=== PATIENT | female | born 1950 | race Caucasian/White ===

== ENCOUNTER 2017-10-01 10:47 | Emergency (ER) | payer MEDICARE, MEDICAID ==
[2017-10-01 10:57] VITALS: BP 144/66
[2017-10-01] MEDS ORDERED: Sodium Chloride 0.9% 10 ML Syringe FLUSH PRN (11:25)
[2017-10-01] MEDS ORDERED: Sodium Chloride 0.9% 1,000 ML IV ONE (11:26)
[2017-10-01 12:18] LABS: CHLORIDE,CL 102 mmol/L (98-107); SODIUM,NA 141 mmol/L (136-145)
[2017-10-01] MEDS ORDERED: Take Home: Ondansetron 4 MG Tab.DIS, 2 Tab Pack PO ONE (12:48)
--- NOTE | 2017-10-04 11:04 | EDM.PDOC ---
ED HPI GENERAL MEDICAL PROBLEM - General Chief Complaint: General Stated Complaint: not feeling well Time Seen by Provider: 10/01/17 11:10 Source of Information: Reports: Patient History Limitations: Reports: No Limitations - History of Present Illness INITIAL COMMENTS - FREE TEXT/NARRATIVE: Pt. presents to ER with complaints of "not feeling well". Pt. states that she had been having some nausea and diarrhea the day prior to this ER visit. States that she feels cold, but attributes it to the weather. Denies any rigors. She has a history of COPD but has not been experiencing any increased dyspnea. Denies any chest pain. No abdominal pain. She states that she has not been experiencing any fever or chills. She is quite vague about her symptoms and complains primarily of weakness and fatigue. Onset: Today Associated Symptoms: Reports: Loss of Appetite, Malaise - Related Data Allergies Allergy/AdvReac Type Severity Reaction Status Date / Time No Known Allergies Allergy Verified 10/01/17 10:57 Home Meds: Home Meds Lisinopril 10 mg PO DAILY 10/01/14 [History] Albuterol Sulfate 2.5 mg IH Q4H PRN 10/01/17 [History] Albuterol [Ventolin HFA] 2 puff INH Q6H PRN 10/01/17 [History] Aspirin 81 mg PO DAILY 10/01/17 [History] Budesonide/Formoterol Fumarate [Symbicort 160-4.5 Mcg Inhaler] 2 puff IH BID 06/10 [History] Furosemide [Lasix] 20 mg PO DAILY 10/01/17 [History] LORazepam [LORazepam] 0.5 mg PO DAILY PRN 10/01/17 [History] Montelukast [Singulair] 10 mg PO BEDTIME 10/01/17 [History] Pantoprazole Sodium [Protonix] 40 mg PO DAILY 10/01/17 [History] atorvaSTATin [Lipitor] 40 mg PO BEDTIME 10/01/17 [History] metFORMIN [Glucophage] 500 mg PO BIDMEALS 10/01/17 [History] predniSONE [Prednisone] 20 mg PO DAILY 10/01/17 [History] Past Medical History HEENT History: Reports: Cataract Cardiovascular History: Reports: High Cholesterol, Hypertension Respiratory History: Reports: Bronchitis, Recurrent, COPD Gastrointestinal History: Reports: GERD Psychiatric History: Reports: Depression Endocrine/Metabolic History: Reports: Diabetes, Type II - Past Surgical History GI Surgical History: Reports: Cholecystectomy Female Surgical History: Reports: Section Social & Family History - Tobacco Use Smoking Status *Q: Current Every Day Smoker Years of Tobacco use: 46 Packs/Tins Daily: 1.5 - Alcohol Use Days Per Week of Alcohol Use: 0 - Recreational Drug Use Recreational Drug Use: No ED ROS GENERAL - Review of Systems Review Of Systems: See Below Constitutional: Reports: Chills, Malaise, Fatigue, Decreased Appetite. Denies: Weakness, Night Sweats HEENT: Reports: No Symptoms. Denies: Rhinitis, Sinus Problem, Throat Pain, Throat Swelling Respiratory: Reports: No Symptoms. Denies: Shortness of Breath, Wheezing Cardiovascular: Reports: No Symptoms Endocrine: Reports: No Symptoms GI/Abdominal: Reports: Anorexia, Diarrhea, Decreased Appetite, Nausea. Denies: Bloody Stool, Constipation, Distension, Vomiting : Reports: No Symptoms Musculoskeletal: Reports: No Symptoms Skin: Reports: No Symptoms Neurological: Reports: No Symptoms Psychiatric: Reports: No Symptoms ED EXAM, GENERAL - Physical Exam Exam: See Below General Appearance: Alert, WD/WN, No Apparent Distress Eye Exam: Bilateral Eye: EOMI, PERRL Ears: Normal External Exam, Normal Canal, Hearing Grossly Normal, Normal TMs Ear Exam: Bilateral Ear: Auricle Normal, Canal Normal, TM normal Nose: Normal Inspection, Normal Mucosa, No Blood Throat/Mouth: Normal Inspection, Normal Lips, Normal Teeth, Normal Gums, Normal Oropharynx, Normal Voice, No Airway Compromise Head: Atraumatic, Normocephalic Neck: Normal Inspection, Supple, Non-Tender, Full Range of Motion Respiratory/Chest: No Respiratory Distress, Lungs Clear, Normal Breath Sounds, No Accessory Muscle Use, Chest Non-Tender Cardiovascular: Normal Peripheral Pulses, Regular Rate, Rhythm, No Edema, No Gallop, No JVD, No Murmur, No Rub GI/Abdominal: Normal Bowel Sounds, Soft, Non-Tender, No Organomegaly, No Distention, No Abnormal Bruit, No Mass, Pelvis Stable. No: Distended, Rigid, Mass, Hepatomegaly, Splenomegaly (Female) Exam: Deferred Rectal (Female) Exam: Deferred Back Exam: Normal Inspection, Full Range of Motion, NT Extremities: Normal Inspection, Normal Range of Motion, Non-Tender, Normal Capillary Refill, No Pedal Edema Neurological: Alert, Oriented, CN II-XII Intact, Normal Cognition, Normal Gait, Normal Reflexes, No Motor/Sensory Deficits Psychiatric: Normal Affect, Normal Mood Skin Exam: Warm, Dry, Intact, Normal Color, No Rash Course - Vital Signs Last Recorded V/S: Last Vital Signs Temp 36.2 C 10/01/17 10:53 Pulse 117 H 10/01/17 10:53 Resp 14 10/01/17 10:53 BP 144/66 H 10/01/17 10:53 Pulse Ox 100 10/01/17 10:53 - Orders/Labs/Meds Labs: Laboratory Tests 10/01/17 10/01/17 10/01/17 Range/Units 11:10 11:38 11:38 WBC 9.7 (4.0-10.0) x10^3/uL RBC 5.12 (4.00-5.50) x10^6/uL Hgb 14.6 (12.0-16.0) g/dL Hct 44.8 (33.0-47.0) % MCV 87.5 (78.0-93.0) fL MCH 28.5 (26.0-32.0) pg MCHC 32.6 (32.0-36.0) g/dL RDW Coeff of Will 15.1 H (10.0-15.0) % Plt Count 316 (130-400) x10^3/uL Neut % (Auto) 71.6 (50.0-80.0) % Lymph % (Auto) 20.0 L (25.0-50.0) % [place] % (Auto) 7.6 (2.0-11.0) % Eos % (Auto) 0.5 (0.0-4.0) % Baso % (Auto) 0.3 (0.2-1.2) % PT 10.4 (9.8-11.8) SEC INR 1.0 L (2.0-3.5) Sodium (136-145) mmol/L Potassium (3.5-5.1) mmol/L Chloride (98-107) mmol/L Carbon Dioxide (21-32) mmol/L BUN (7-18) mg/dL Creatinine (0.55-1.02) mg/dL Est Cr Clr Drug Dosing mL/min Estimated GFR (MDRD) Glucose (74-106) mg/dL Lactic Acid (0.4-2.0) mmol/L Calcium (8.5-10.1) mg/dL Corrected Calcium (8.5-10.1) mg/dL Phosphorus (2.6-4.7) mg/dL Magnesium (1.8-2.4) mg/dL Total Bilirubin (0.2-1.0) mg/dL AST (15-37) U/L ALT (14-59) U/L Alkaline Phosphatase (46-116) U/L Troponin I (<=0.056) ng/mL C-Reactive Protein (<=0.9) mg/dL NT-Pro-B Natriuret Pep (<=125) pg/mL Total Protein (6.4-8.2) g/dL Albumin (3.4-5.0) g/dL Globulin Albumin/Globulin Ratio TSH, Ultra Sensitive (0.358-3.74) uIU/mL Urine Color Yellow (YELLOW) Urine Appearance Clear (CLEAR) Urine pH 6.0 (5.0-8.0) Ur Specific [place] 1.010 Urine Protein Negative (NEGATIVE) mg/dL Urine Glucose (UA) Negative (NEGATIVE) mg/dL Urine Ketones Negative (NEGATIVE) mg/dL Urine Occult Blood Trace-intact H (NEGATIVE) Urine Nitrite Negative (NEGATIVE) Urine Bilirubin Negative (NEGATIVE) Urine Urobilinogen 0.2 (0.2) EU/dL Ur Leukocyte Esterase Negative (NEGATIVE) Urine RBC 0-5 (NOT SEEN) /HPF Urine WBC 0-5 (NOT SEEN) /HPF Ur Squamous Epith Cells Few H (NEGATIVE) /HPF Urine Bacteria Not seen (NEGATIVE) /HPF Urine Mucus Not seen (NEGATIVE) /LPF 10/01/17 10/01/17 Range/Units 11:38 11:38 WBC (4.0-10.0) x10^3/uL RBC (4.00-5.50) x10^6/uL Hgb (12.0-16.0) g/dL Hct (33.0-47.0) % MCV (78.0-93.0) fL MCH (26.0-32.0) pg MCHC (32.0-36.0) g/dL RDW Coeff of Will (10.0-15.0) % Plt Count (130-400) x10^3/uL Neut % (Auto) (50.0-80.0) % Lymph % (Auto) (25.0-50.0) % [place] % (Auto) (2.0-11.0) % Eos % (Auto) (0.0-4.0) % Baso % (Auto) (0.2-1.2) % PT (9.8-11.8) SEC INR (2.0-3.5) Sodium 141 (136-145) mmol/L Potassium 3.5 (3.5-5.1) mmol/L Chloride 102 (98-107) mmol/L Carbon Dioxide 28 (21-32) mmol/L BUN 7 (7-18) mg/dL Creatinine 0.8 (0.55-1.02) mg/dL Est Cr Clr Drug Dosing 56.45 mL/min Estimated GFR (MDRD) > 60 Glucose 119 H (74-106) mg/dL Lactic Acid 1.5 (0.4-2.0) mmol/L Calcium 9.0 (8.5-10.1) mg/dL Corrected Calcium 9.08 (8.5-10.1) mg/dL Phosphorus 3.4 (2.6-4.7) mg/dL Magnesium 2.1 (1.8-2.4) mg/dL Total Bilirubin 0.6 (0.2-1.0) mg/dL AST 15 (15-37) U/L ALT 22 (14-59) U/L Alkaline Phosphatase 153 H (46-116) U/L Troponin I < 0.017 (<=0.056) ng/mL C-Reactive Protein 1.0 H (<=0.9) mg/dL NT-Pro-B Natriuret Pep 57 (<=125) pg/mL Total Protein 8.0 (6.4-8.2) g/dL Albumin 3.9 (3.4-5.0) g/dL Globulin 4.1 Albumin/Globulin Ratio 0.95 TSH, Ultra Sensitive 1.301 (0.358-3.74) uIU/mL Urine Color (YELLOW) Urine Appearance (CLEAR) Urine pH (5.0-8.0) Ur Specific [place] Urine Protein (NEGATIVE) mg/dL Urine Glucose (UA) (NEGATIVE) mg/dL Urine Ketones (NEGATIVE) mg/dL Urine Occult Blood (NEGATIVE) Urine Nitrite (NEGATIVE) Urine Bilirubin (NEGATIVE) Urine Urobilinogen (0.2) EU/dL Ur Leukocyte Esterase (NEGATIVE) Urine RBC (NOT SEEN) /HPF Urine WBC (NOT SEEN) /HPF Ur Squamous Epith Cells (NEGATIVE) /HPF Urine Bacteria (NEGATIVE) /HPF Urine Mucus (NEGATIVE) /LPF Meds: Medications Discontinued Medications Generic Name Dose Route Start Last Admin Trade Name Freq PRN Reason Stop Dose Admin Sodium Chloride 1,000 mls @ 1,000 mls/hr 10/01/17 11:26 10/01/17 11:29 Normal Saline IV 10/01/17 12:25 1,000 mls/hr .BOLUS ONE Administration Ondansetron HCl 1 packet 10/01/17 12:48 10/01/17 13:00 Take Home: Ondansetron Odt 4 Mg, 2 Tab Pack PO 10/01/17 12:49 1 packet ONETIME ONE Administration Sodium Chloride 10 ml 10/01/17 11:25 Saline Flush FLUSH ASDIRECTED PRN Keep Vein Open Departure - Departure Time of Disposition: 13:06 Disposition: Home, Self-Care 01 Clinical Impression: Gastroenteritis, Dehydration - Discharge Information Instructions: Ondansetron oral dissolving tablet, Viral Gastroenteritis, Adult , [id number], Food Choices to Help Relieve Diarrhea, Adult Referrals: Leona Walden DO [Primary Care Provider] - Forms: ED Department Discharge Additional Instructions: Home to rest. Liquid diet today (water, gatorade, and powerade) Porter diet tomorrow (bananas, rice, apples, toast, etc.) starting tomorrow. Zofran 4mg every 8 hours. Follow-up in clinic in 7-10 days.
== END 2017-10-01 13:06 | disposition home or self-care (01) ==
LOC: VM.ED 10:47
DX: K52.9 Noninfective gastroenteritis and colitis, unspecified (principal); E11.9 Type 2 diabetes mellitus without complications; I10 Essential (primary) hypertension; E78.00 Pure hypercholesterolemia, unspecified; K21.9 Gastro-esophageal reflux disease without esophagitis; F17.210 Nicotine dependence, cigarettes, uncomplicated; J44.9 Chronic obstructive pulmonary disease, unspecified; F32.9 Major depressive disorder, single episode, unspecified; Z79.84 Long term (current) use of oral hypoglycemic drugs; Z79.82 Long term (current) use of aspirin; Z79.899 Other long term (current) drug therapy
CPT/HCPCS: 36415; 71046; 80053; 81001; 83605; 83735; 83880; 84100; 84443; 84484; 85025; 85610; 86140; 93005; 96360; 96361; 99284-GF; 99285; A9270-GY; J7030

== ENCOUNTER 2018-08-14 17:55 | Observation (INO) | payer MEDICARE, MEDICAID ==
[2018-08-14] MEDS ORDERED: Sodium Chloride 0.9% 10 ML Syringe FLUSH PRN (18:05)
--- NOTE | 2018-08-14 18:12 | EDM.PDOC ---
ED HPI GENERAL MEDICAL PROBLEM - General Chief Complaint: Neurological Problem Stated Complaint: Dizziness; Near Syncope Time Seen by Provider: 08/14/18 17:56 Source of Information: Reports: Patient, Family, Old Records, RN, RN Notes Reviewed History Limitations: Reports: No Limitations - History of Present Illness INITIAL COMMENTS - FREE TEXT/NARRATIVE: Patient presents emergency room at [facility] complaining of dizziness, near syncope, shortness of breath, and heart palpitations. The patient states that the symptoms began around 4 PM this afternoon. The patient denies any nausea or vomiting. The patient states she feels like she is going to pass out. The patient has not had any head injuries or LOC. The patient denies any chest pain. The patient has a long-standing history of COPD and shortness of breath. The patient does take lorazepam 1 mg twice daily. She has been taking her medications as directed. Onset: Today Onset Date: 08/14/18 Onset Time: 16:00 - Related Data Allergies Allergy/AdvReac Type Severity Reaction Status Date / Time metformin Allergy Diarrhea Verified 08/14/18 19:49 Home Meds: Home Meds Lisinopril 10 mg PO DAILY 10/01/14 [History] Albuterol Sulfate 2.5 mg IH Q4H PRN 10/01/17 [History] Albuterol [Ventolin HFA] 2 puff INH Q6H PRN 10/01/17 [History] Aspirin 81 mg PO DAILY 10/01/17 [History] Budesonide/Formoterol Fumarate [Symbicort 160-4.5 Mcg Inhaler] 2 puff IH BID 06/10 [History] Furosemide [Lasix] 20 mg PO DAILY 10/01/17 [History] LORazepam 0.5 mg PO DAILY PRN 10/01/17 [History] Montelukast [Singulair] 10 mg PO BEDTIME 10/01/17 [History] Pantoprazole Sodium [Protonix] 40 mg PO DAILY 10/01/17 [History] atorvaSTATin [Lipitor] 40 mg PO BEDTIME 10/01/17 [History] metFORMIN [Glucophage] 500 mg PO BIDMEALS 10/01/17 [History] predniSONE [Prednisone] 20 mg PO DAILY 10/01/17 [History] Past Medical History HEENT History: Reports: Cataract Cardiovascular History: Reports: High Cholesterol, Hypertension Respiratory History: Reports: Bronchitis, Recurrent, COPD Gastrointestinal History: Reports: GERD Psychiatric History: Reports: Depression Endocrine/Metabolic History: Reports: Diabetes, Type II - Past Surgical History GI Surgical History: Reports: Cholecystectomy Female Surgical History: Reports: Section ED ROS GENERAL - Review of Systems Review Of Systems: See Below Constitutional: Denies: Fever, Chills, Weakness HEENT: Denies: Vertigo, Vision Change Respiratory: Reports: Shortness of Breath. Denies: Cough Cardiovascular: Reports: Palpitations. Denies: Chest Pain GI/Abdominal: Denies: Abdominal Pain, Nausea, Vomiting Skin: Reports: No Symptoms Neurological: Reports: Dizziness. Denies: Headache, Numbness, Paresthesia, Tingling ED EXAM, DIZZINESS - Physical Exam Exam: See Below Exam Limited By: No Limitations General Appearance: Alert, No Apparent Distress, Anxious, Cachetic Eye Exam: Bilateral Eye: Normal Inspection, PERRL Head Exam: Atraumatic, Normocephalic Respiratory/Chest: No Respiratory Distress, Lungs Clear, Decreased Breath Sounds Cardiovascular: Normal Peripheral Pulses, Extra Beats GI/Abdominal: Normal Bowel Sounds, Soft, Non-Tender Neurological: Alert, Normal Gait, Oriented x 3 Skin Exam: Warm, Dry, Intact, Normal Color Course - Vital Signs Last Recorded V/S: Last Vital Signs Temp 36.1 C 08/14/18 18:15 Pulse 103 H 08/14/18 18:15 Resp 20 08/14/18 18:15 BP 136/56 L 08/14/18 18:15 Pulse Ox 100 08/14/18 18:15 - Orders/Labs/Meds Orders: Active Orders 24 hr Category Date Time Status EKG 12 Lead [EKG Documentation Completion] [RC] STAT Care 08/14/18 18:05 Active Chest 2V [CR] Stat Exams 08/14/18 18:04 Taken Sodium Chloride 0.9% [Saline Flush] Med 08/14/18 18:05 Active 10 ml FLUSH ASDIRECTED PRN Peripheral IV Insertion Adult [OM.PC] Routine Oth 08/14/18 18:05 Ordered Medication Orders Sodium Chloride (Saline Flush) 10 ml FLUSH ASDIRECTED PRN PRN Reason: Keep Vein Open Labs: Laboratory Tests 08/14/18 08/14/18 08/14/18 Range/Units 18:20 18:20 18:20 WBC 8.8 (4.0-10.0) x10^3/uL RBC 5.03 (4.00-5.50) x10^6/uL Hgb 14.7 (12.0-16.0) g/dL Hct 43.9 (33.0-47.0) % MCV 87.3 (78.0-93.0) fL MCH 29.2 (26.0-32.0) pg MCHC 33.5 (32.0-36.0) g/dL RDW Coeff of Will 14.9 (10.0-15.0) % Plt Count 321 (130-400) x10^3/uL Neut % (Auto) 54.6 (50.0-80.0) % Lymph % (Auto) 35.7 (25.0-50.0) % [place] % (Auto) 8.1 (2.0-11.0) % Eos % (Auto) 1.4 (0.0-4.0) % Baso % (Auto) 0.2 (0.2-1.2) % Sodium 142 (136-145) mmol/L Potassium 2.8 L* (3.5-5.1) mmol/L Chloride 102 (98-107) mmol/L Carbon Dioxide 29 (21-32) mmol/L Anion Gap 13.8 (10-20) mmol/L BUN 11 (7-18) mg/dL Creatinine 0.7 (0.55-1.02) mg/dL Est Cr Clr Drug Dosing TNP Estimated GFR (MDRD) > 60 Glucose 116 H (74-106) mg/dL Calcium 9.4 (8.5-10.1) mg/dL Corrected Calcium 9.48 (8.5-10.1) mg/dL Total Bilirubin 0.4 (0.2-1.0) mg/dL AST 15 (15-37) U/L ALT 23 (14-59) U/L Alkaline Phosphatase 118 H (46-116) U/L Creatine Kinase 64 (26-192) U/L Troponin I < 0.017 (<=0.056) ng/mL Total Protein 8.1 (6.4-8.2) g/dL Albumin 3.9 (3.4-5.0) g/dL Globulin 4.2 Albumin/Globulin Ratio 0.93 Urine Color (YELLOW) Urine Appearance (CLEAR) Urine pH (5.0-8.0) Ur Specific [place] Urine Protein (NEGATIVE) mg/dL Urine Glucose (UA) (NEGATIVE) mg/dL Urine Ketones (NEGATIVE) mg/dL Urine Occult Blood (NEGATIVE) Urine Nitrite (NEGATIVE) Urine Bilirubin (NEGATIVE) Urine Urobilinogen (0.2) EU/dL Ur Leukocyte Esterase (NEGATIVE) Urine RBC (NOT SEEN) /HPF Urine WBC (NOT SEEN) /HPF Ur Squamous Epith Cells (NEGATIVE) /HPF Urine Bacteria (NEGATIVE) /HPF Urine Mucus (NEGATIVE) /LPF Urine Opiates Screen (NEGATIVE) Ur Buprenorphine Scrn (NEGATIVE) Ur Oxycodone Screen (NEGATIVE) Urine Methadone Screen (NEGATIVE) Ur Barbiturates Screen (NEGATIVE) Ur Tricyclics Screen (NEGATIVE) Ur Amphetamine Screen (NEGATIVE) U Methamphetamines Scrn (NEGATIVE) Urine MDMA Screen (NEGATIVE) U Benzodiazepines Scrn (NEGATIVE) U Cocaine Metab Screen (NEGATIVE) U Marijuana (THC) Screen (NEGATIVE) Ethyl Alcohol < 3 (0-3) mg/dL 08/14/18 08/14/18 Range/Units 19:15 19:20 WBC (4.0-10.0) x10^3/uL RBC (4.00-5.50) x10^6/uL Hgb (12.0-16.0) g/dL Hct (33.0-47.0) % MCV (78.0-93.0) fL MCH (26.0-32.0) pg MCHC (32.0-36.0) g/dL RDW Coeff of Will (10.0-15.0) % Plt Count (130-400) x10^3/uL Neut % (Auto) (50.0-80.0) % Lymph % (Auto) (25.0-50.0) % [place] % (Auto) (2.0-11.0) % Eos % (Auto) (0.0-4.0) % Baso % (Auto) (0.2-1.2) % Sodium (136-145) mmol/L Potassium (3.5-5.1) mmol/L Chloride (98-107) mmol/L Carbon Dioxide (21-32) mmol/L Anion Gap (10-20) mmol/L BUN (7-18) mg/dL Creatinine (0.55-1.02) mg/dL Est Cr Clr Drug Dosing Estimated GFR (MDRD) Glucose (74-106) mg/dL Calcium (8.5-10.1) mg/dL Corrected Calcium (8.5-10.1) mg/dL Total Bilirubin (0.2-1.0) mg/dL AST (15-37) U/L ALT (14-59) U/L Alkaline Phosphatase (46-116) U/L Creatine Kinase (26-192) U/L Troponin I (<=0.056) ng/mL Total Protein (6.4-8.2) g/dL Albumin (3.4-5.0) g/dL Globulin Albumin/Globulin Ratio Urine Color Yellow (YELLOW) Urine Appearance Clear (CLEAR) Urine pH 7.0 (5.0-8.0) Ur Specific [place] 1.015 Urine Protein Negative (NEGATIVE) mg/dL Urine Glucose (UA) Negative (NEGATIVE) mg/dL Urine Ketones Negative (NEGATIVE) mg/dL Urine Occult Blood Small H (NEGATIVE) Urine Nitrite Negative (NEGATIVE) Urine Bilirubin Negative (NEGATIVE) Urine Urobilinogen 0.2 (0.2) EU/dL Ur Leukocyte Esterase Negative (NEGATIVE) Urine RBC 0-5 (NOT SEEN) /HPF Urine WBC 0-5 (NOT SEEN) /HPF Ur Squamous Epith Cells Few H (NEGATIVE) /HPF Urine Bacteria Few H (NEGATIVE) /HPF Urine Mucus Few H (NEGATIVE) /LPF Urine Opiates Screen Negative (NEGATIVE) Ur Buprenorphine Scrn Negative (NEGATIVE) Ur Oxycodone Screen Negative (NEGATIVE) Urine Methadone Screen Negative (NEGATIVE) Ur Barbiturates Screen Negative (NEGATIVE) Ur Tricyclics Screen Negative (NEGATIVE) Ur Amphetamine Screen Negative (NEGATIVE) U Methamphetamines Scrn Negative (NEGATIVE) Urine MDMA Screen Negative (NEGATIVE) U Benzodiazepines Scrn Negative (NEGATIVE) U Cocaine Metab Screen Negative (NEGATIVE) U Marijuana (THC) Screen Negative (NEGATIVE) Ethyl Alcohol (0-3) mg/dL Meds: Medications Generic Name Dose Route Start Last Admin Trade Name Freq PRN Reason Stop Dose Admin Sodium Chloride 10 ml 08/14/18 18:05 Saline Flush FLUSH ASDIRECTED PRN Keep Vein Open Departure - Departure Time of Disposition: 19:55 Disposition: Refer to Observation Condition: Good Clinical Impression: Acute hypokalemia - Discharge Information *PRESCRIPTION DRUG MONITORING PROGRAM REVIEWED*: Not Applicable *COPY OF PRESCRIPTION DRUG MONITORING REPORT IN PATIENT ROSY: Not Applicable - Problem List Review Problem List Initiated/Reviewed/Updated: Yes - My Orders Last 24 Hours: My Active Orders 08/14/18 18:04 Chest 2V [CR] Stat 08/14/18 18:05 EKG 12 Lead [EKG Documentation Completion] [RC] STAT Sodium Chloride 0.9% [Saline Flush] 10 ml FLUSH ASDIRECTED PRN Peripheral IV Insertion Adult [OM.PC] Routine - Assessment/Plan Admission H&P: Please use this note as an admission H&P Last 24 Hours: My Active Orders 08/14/18 18:04 Chest 2V [CR] Stat 08/14/18 18:05 EKG 12 Lead [EKG Documentation Completion] [RC] STAT Sodium Chloride 0.9% [Saline Flush] 10 ml FLUSH ASDIRECTED PRN Peripheral IV Insertion Adult [OM.PC] Routine Assessment:: Hypokalemia Plan: Patient will be admitted obs due to symptomatic hypokalemia. Patient will get IV KCL and levels rechecked. If normal, patient will be discharge home. Patient agrees with this admission and wishes to proceed.
[2018-08-14 18:57] LABS: CHLORIDE,CL 102 mmol/L (98-107); SODIUM,NA 142 mmol/L (136-145)
[2018-08-14 18:58] LABS: ANION GAP 13.8 mmol/L (10-20)
[2018-08-14] MEDS ORDERED: Sodium Chloride 0.9% 500 ML IV ONE (20:24)
[2018-08-14] MEDS ORDERED: Potassium Chloride 10 MEQ Tab.ER PO ONE (20:26)
[2018-08-14] MEDS ORDERED: Potassium Chloride Riders 20 MEQ in Premix Bag 1 BAG IV ONE ×2 (20:30→22:30)
[2018-08-14] MEDS ORDERED: Albuterol 0.083% 2.5 MG/3 ML Neb Soln INH PRN (21:55)
[2018-08-14] MEDS ORDERED: Albuterol 8 GM Inhaler INH PRN (21:55)
[2018-08-14] MEDS: busPIRone 5 MG Tab PO SCH (22:20)
[2018-08-14] MEDS ORDERED: Ondansetron 4 MG Tab.DIS PO PRN (22:30)
[2018-08-14] MEDS ORDERED: Montelukast 10 MG Tab PO ONE (22:30)
[2018-08-14] MEDS ORDERED: LORazepam 1 MG Tab PO PRN (22:30)
[2018-08-14] MEDS ORDERED: atorvaSTATin 40 MG Tab PO ONE (22:30)
[2018-08-15] MEDS ORDERED: Albuterol/Ipratropium 3.0-0.5 MG/3 ML Neb Soln INH SCH (01:00)
[2018-08-15 05:13] VITALS: BP 135/71
[2018-08-15] MEDS ORDERED: Pantoprazole 40 MG Tab.CR PO SCH (07:00)
[2018-08-15 07:19] LABS: CHLORIDE,CL 108 mmol/L (98-107); SODIUM,NA 144 mmol/L (136-145)
[2018-08-15 07:20] LABS: ANION GAP 11.7 mmol/L (10-20)
--- NOTE | 2018-08-15 07:42 | PCM.DCSUM1 ---
Discharge Summary - Hospital Course HPI Initial Comments: Patient admitted to observation last even for hypokalemia. Patient had presented to the ED yesterday for feeling shaky, dizziness, and just not feeling well. He potassium was 2.8, so patient was admitted for IV replacement. Diagnosis: Stroke: No Modified [place] Scale: No Symptoms at All Modified [place] Scale Score: 0 - Discharge Data Discharge Date: 08/15/18 Discharge Disposition: Home, Self-Care 01 Condition: Good - Discharge Diagnosis/Problem(s) (1) Acute hypokalemia SNOMED Code(s): 94891626 ICD Code: E87.6 - HYPOKALEMIA Status: Resolved Current Visit: Yes Onset Date: ~08/14/18 - Patient Summary/Data Operative Procedure(s) Performed: None Consults: None Labs Pending at D/C: None Hospital Course: Patient remained hemodynamically stable and afebrile. No issues with pain. No chest pain or SOB. No heart palpitations. No issues with BM's or urination. - Patient Instructions Diet: Heart Healthy Diet, Low Sodium Activity: No Strenuous Activities, Rest and Relax Today Driving: Do Not Drive Showering/Bathing: May Shower - Discharge Plan *PRESCRIPTION DRUG MONITORING PROGRAM REVIEWED*: Not Applicable *COPY OF PRESCRIPTION DRUG MONITORING REPORT IN PATIENT ROSY: Not Applicable Prescriptions/Med Rec: Calcium Carbonate/Vitamin D3 [Calcium 600 + Vit D 400 Tablet] 1 each PO DAILY # 30 tablet Potassium Chloride 20 meq PO DAILY #30 tablet.er Home Medications: Home Meds Lisinopril 10 mg PO DAILY 10/01/14 [History] Albuterol [Ventolin HFA] 2 puff INH Q6H PRN 10/01/17 [History] Aspirin 81 mg PO DAILY 10/01/17 [History] Furosemide [Lasix] 20 mg PO DAILY 10/01/17 [History] LORazepam 1 mg PO BID PRN 10/01/17 [History] Montelukast [Singulair] 10 mg PO BEDTIME 10/01/17 [History] Pantoprazole Sodium [Protonix] 40 mg PO DAILY 10/01/17 [History] atorvaSTATin [Lipitor] 40 mg PO BEDTIME 10/01/17 [History] Ondansetron [Zofran ODT] 4 mg PO Q8H PRN 08/14/18 [History] Umeclidinium Brm/Vilanterol Tr [Anoro Ellipta 62.5-25 MCG] 1 each IH DAILY 08/14 [History] amLODIPine Besylate [Norvasc] 10 mg PO DAILY 08/14/18 [History] busPIRone [Buspar] 5 mg PO BID 08/14/18 [History] Calcium Carbonate/Vitamin D3 [Calcium 600 + Vit D 400 Tablet] 1 each PO DAILY # 30 tablet 08/15/18 [Rx] Potassium Chloride 20 meq PO DAILY #30 tablet.er 08/15/18 [Rx] Oxygen Therapy Mode: Room Air Referrals: Leona Walden DO [Primary Care Provider] - - Discharge Summary/Plan Comment DC Time >30 min.: No Discharge Summary/Plan Comment: Patient will be discharge home today. Start KCL 20meg daily and also start Calcium with D daily. No changes with any other medications. Patient will need a follow up with PCP next week. Will also need labs prior to PCP appt. - General Info Date of Service: 08/15/18 Admission Dx/Problem (Free Text: Hypokalemia Subjective Update: Patient offers no specific complaints this morning. She feel much better. No chest pain or SOB. No palpitations. No focal neurological complaints. Functional Status: Reports: Pain Controlled, Tolerating Diet, Ambulating, Urinating Numeric/FACES Score: 0 - Review of Systems General: Denies: Fever, Chills Pulmonary: Denies: Shortness of Breath, Cough Cardiovascular: Denies: Chest Pain, Palpitations, Lightheadedness Gastrointestinal: Denies: Abdominal Pain, Nausea, Vomiting Skin: Reports: No Symptoms Neurological: Denies: Dizziness, Headache - Patient Data Vitals - Most Recent: Last Vital Signs Temp 36.6 C 08/15/18 05:12 Pulse 88 08/15/18 05:12 Resp 18 08/15/18 05:12 BP 135/71 08/15/18 05:12 Pulse Ox 93 L 08/15/18 05:12 Weight - Most Recent: 76.204 kg I&O - Last 24 hours: Intake & Output 08/14/18 08/15/18 08/15/18 22:59 06:59 14:59 Intake Total 383 Output Total 2100 Balance -1717 Lab Results - Last 24 hrs: Laboratory Results - last 24 hr 08/14/18 08/14/18 08/14/18 Range/Units 18:20 18:20 18:20 WBC 8.8 (4.0-10.0) x10^3/uL RBC 5.03 (4.00-5.50) x10^6/uL Hgb 14.7 (12.0-16.0) g/dL Hct 43.9 (33.0-47.0) % MCV 87.3 (78.0-93.0) fL MCH 29.2 (26.0-32.0) pg MCHC 33.5 (32.0-36.0) g/dL RDW Coeff of Will 14.9 (10.0-15.0) % Plt Count 321 (130-400) x10^3/uL Neut % (Auto) 54.6 (50.0-80.0) % Lymph % (Auto) 35.7 (25.0-50.0) % [place] % (Auto) 8.1 (2.0-11.0) % Eos % (Auto) 1.4 (0.0-4.0) % Baso % (Auto) 0.2 (0.2-1.2) % Sodium 142 (136-145) mmol/L Potassium 2.8 L* (3.5-5.1) mmol/L Chloride 102 (98-107) mmol/L Carbon Dioxide 29 (21-32) mmol/L Anion Gap 13.8 (10-20) mmol/L BUN 11 (7-18) mg/dL Creatinine 0.7 (0.55-1.02) mg/dL Est Cr Clr Drug Dosing TNP Estimated GFR (MDRD) > 60 Glucose 116 H (74-106) mg/dL Calcium 9.4 (8.5-10.1) mg/dL Corrected Calcium 9.48 (8.5-10.1) mg/dL Magnesium (1.8-2.4) mg/dL Total Bilirubin 0.4 (0.2-1.0) mg/dL AST 15 (15-37) U/L ALT 23 (14-59) U/L Alkaline Phosphatase 118 H (46-116) U/L Creatine Kinase 64 (26-192) U/L Troponin I < 0.017 (<=0.056) ng/mL Total Protein 8.1 (6.4-8.2) g/dL Albumin 3.9 (3.4-5.0) g/dL Globulin 4.2 Albumin/Globulin Ratio 0.93 Urine Color (YELLOW) Urine Appearance (CLEAR) Urine pH (5.0-8.0) Ur Specific [place] Urine Protein (NEGATIVE) mg/dL Urine Glucose (UA) (NEGATIVE) mg/dL Urine Ketones (NEGATIVE) mg/dL Urine Occult Blood (NEGATIVE) Urine Nitrite (NEGATIVE) Urine Bilirubin (NEGATIVE) Urine Urobilinogen (0.2) EU/dL Ur Leukocyte Esterase (NEGATIVE) Urine RBC (NOT SEEN) /HPF Urine WBC (NOT SEEN) /HPF Ur Squamous Epith Cells (NEGATIVE) /HPF Urine Bacteria (NEGATIVE) /HPF Urine Mucus (NEGATIVE) /LPF Urine Opiates Screen (NEGATIVE) Ur Buprenorphine Scrn (NEGATIVE) Ur Oxycodone Screen (NEGATIVE) Urine Methadone Screen (NEGATIVE) Ur Barbiturates Screen (NEGATIVE) Ur Tricyclics Screen (NEGATIVE) Ur Amphetamine Screen (NEGATIVE) U Methamphetamines Scrn (NEGATIVE) Urine MDMA Screen (NEGATIVE) U Benzodiazepines Scrn (NEGATIVE) U Cocaine Metab Screen (NEGATIVE) U Marijuana (THC) Screen (NEGATIVE) Ethyl Alcohol < 3 (0-3) mg/dL 08/14/18 08/14/18 08/15/18 Range/Units 19:15 19:20 06:30 WBC (4.0-10.0) x10^3/uL RBC (4.00-5.50) x10^6/uL Hgb (12.0-16.0) g/dL Hct (33.0-47.0) % MCV (78.0-93.0) fL MCH (26.0-32.0) pg MCHC (32.0-36.0) g/dL RDW Coeff of Will (10.0-15.0) % Plt Count (130-400) x10^3/uL Neut % (Auto) (50.0-80.0) % Lymph % (Auto) (25.0-50.0) % [place] % (Auto) (2.0-11.0) % Eos % (Auto) (0.0-4.0) % Baso % (Auto) (0.2-1.2) % Sodium 144 (136-145) mmol/L Potassium 3.7 (3.5-5.1) mmol/L Chloride 108 H (98-107) mmol/L Carbon Dioxide 28 (21-32) mmol/L Anion Gap 11.7 (10-20) mmol/L BUN 9 (7-18) mg/dL Creatinine 0.6 (0.55-1.02) mg/dL Est Cr Clr Drug Dosing 70.98 Estimated GFR (MDRD) > 60 Glucose 105 (74-106) mg/dL Calcium 9.2 (8.5-10.1) mg/dL Corrected Calcium (8.5-10.1) mg/dL Magnesium 2.1 (1.8-2.4) mg/dL Total Bilirubin (0.2-1.0) mg/dL AST (15-37) U/L ALT (14-59) U/L Alkaline Phosphatase (46-116) U/L Creatine Kinase (26-192) U/L Troponin I (<=0.056) ng/mL Total Protein (6.4-8.2) g/dL Albumin (3.4-5.0) g/dL Globulin Albumin/Globulin Ratio Urine Color Yellow (YELLOW) Urine Appearance Clear (CLEAR) Urine pH 7.0 (5.0-8.0) Ur Specific [place] 1.015 Urine Protein Negative (NEGATIVE) mg/dL Urine Glucose (UA) Negative (NEGATIVE) mg/dL Urine Ketones Negative (NEGATIVE) mg/dL Urine Occult Blood Small H (NEGATIVE) Urine Nitrite Negative (NEGATIVE) Urine Bilirubin Negative (NEGATIVE) Urine Urobilinogen 0.2 (0.2) EU/dL Ur Leukocyte Esterase Negative (NEGATIVE) Urine RBC 0-5 (NOT SEEN) /HPF Urine WBC 0-5 (NOT SEEN) /HPF Ur Squamous Epith Cells Few H (NEGATIVE) /HPF Urine Bacteria Few H (NEGATIVE) /HPF Urine Mucus Few H (NEGATIVE) /LPF Urine Opiates Screen Negative (NEGATIVE) Ur Buprenorphine Scrn Negative (NEGATIVE) Ur Oxycodone Screen Negative (NEGATIVE) Urine Methadone Screen Negative (NEGATIVE) Ur Barbiturates Screen Negative (NEGATIVE) Ur Tricyclics Screen Negative (NEGATIVE) Ur Amphetamine Screen Negative (NEGATIVE) U Methamphetamines Scrn Negative (NEGATIVE) Urine MDMA Screen Negative (NEGATIVE) U Benzodiazepines Scrn Negative (NEGATIVE) U Cocaine Metab Screen Negative (NEGATIVE) U Marijuana (THC) Screen Negative (NEGATIVE) Ethyl Alcohol (0-3) mg/dL Med Orders - Current: Current Medications Albuterol (Ventolin Hfa) 2 gm INH Q6H PRN PRN Reason: Dyspnea Albuterol (Proventil Neb Soln) 2.5 mg INH Q4H PRN PRN Reason: Dyspnea Amlodipine Besylate (Norvasc) 10 mg PO DAILY [facility] Aspirin (Halfprin) 81 mg PO DAILY [facility] Atorvastatin Calcium (Lipitor) 40 mg PO BEDTIME [facility] Buspirone HCl (Buspar) 5 mg PO BID [facility] Last Admin: 08/14/18 22:20 Dose: 5 mg Furosemide (Lasix) 20 mg PO DAILY [facility] Sodium Chloride (Normal Saline) 500 mls @ 30 mls/hr IV ONETIME ONE Stop: 08/15/18 13:03 Last Admin: 08/14/18 20:46 Dose: 30 mls/hr Lisinopril (Prinivil) 10 mg PO DAILY [facility] Lorazepam (Ativan) 1 mg PO BID PRN PRN Reason: Anxiety Montelukast Sodium (Singulair) 10 mg PO BEDTIME [facility] Ondansetron HCl (Zofran Odt) 4 mg PO Q8H PRN PRN Reason: Nausea/Vomiting Pantoprazole Sodium (Protonix) 40 mg PO ACBREAKFAST [facility] Last Admin: 08/15/18 06:20 Dose: 40 mg Sodium Chloride (Saline Flush) 10 ml FLUSH ASDIRECTED PRN PRN Reason: Keep Vein Open Last Admin: 08/14/18 20:47 Dose: 10 ml Discontinued Medications Albuterol/Ipratropium (Duoneb 3.0-0.5 Mg/3 Ml) 3 ml INH Q6HRRT [facility] Atorvastatin Calcium (Lipitor) 40 mg PO ONETIME ONE Stop: 08/14/18 22:31 Last Admin: 08/14/18 22:21 Dose: 40 mg Potassium Chloride 20 meq/ (Premix) 50 mls @ 25 mls/hr IV ONETIME ONE Stop: 08/14/18 22:29 Last Admin: 08/14/18 20:39 Dose: 25 mls/hr Potassium Chloride 20 meq/ (Premix) 50 mls @ 25 mls/hr IV ONETIME ONE Stop: 08/15/18 00:29 Last Admin: 08/14/18 21:32 Dose: 25 mls/hr Montelukast Sodium (Singulair) 10 mg PO ONETIME ONE Stop: 08/14/18 22:31 Last Admin: 08/14/18 22:20 Dose: 10 mg Potassium Chloride (Klor-Con 10) 20 meq PO ONETIME ONE Stop: 08/14/18 20:27 Last Admin: 08/14/18 20:41 Dose: 20 meq - Exam Quality Assessment: Denies: Skin Breakdown General: Reports: Alert, Oriented, Cooperative, No Acute Distress Lungs: Reports: Normal Respiratory Effort, Decreased Breath Sounds Cardiovascular: Reports: Regular Rate, Regular Rhythm GI/Abdominal Exam: Normal Bowel Sounds, Soft, Non-Tender Skin: Reports: Warm, Dry, Intact Neurological: Reports: No New Focal Deficit *Q Meaningful Use (DIS) - VTE *Q VTE Criteria *Q: No risk for falls or VTE at time of this discharge
--- NOTE | 2018-08-15 07:50 | CR ---
[id number] RAD/RAD Chest PA And Lateral EXAM: RAD Chest PA And Lateral CLINICAL DATA: SHORTNESS OF BREATH. COPD. COMPARISON: CORRELATION IS MADE WITH THE EXAM OF OCTOBER 01, 2017. FINDINGS: The lungs are clear. The cardiomediastinal contour is stable. IMPRESSION: NO ACUTE PROCESS. Sánchez Mc MD 08/15/18 0749 Thank you for allowing us to participate in the care of your patient.
[2018-08-15] MEDS: amLODIPine 10 MG Tab PO SCH ×2 (07:59→08:07)
[2018-08-15] MEDS: busPIRone 5 MG Tab PO SCH ×2 (07:59→08:06)
[2018-08-15] MEDS ORDERED: Aspirin 81 MG Tab.EC PO SCH (08:00)
[2018-08-15] MEDS ORDERED: Lisinopril 10 MG Tab PO SCH (08:00)
[2018-08-15] MEDS ORDERED: Furosemide 20 MG Tab PO SCH (08:00)
[2018-08-15] MEDS ORDERED: atorvaSTATin 40 MG Tab PO SCH (20:00)
[2018-08-15] MEDS ORDERED: Montelukast 10 MG Tab PO SCH (20:00)
== END 2018-08-15 09:20 | disposition home or self-care (01) ==
LOC: VM.ED 17:55 → VM.MS 19:44
PROVIDERS: ADMIT Nurse Practitioner Family; ATTEND Nurse Practitioner Family
DX: E87.6 Hypokalemia (principal); I10 Essential (primary) hypertension; E11.9 Type 2 diabetes mellitus without complications; J44.0 Chronic obstructive pulmonary disease with (acute) lower respiratory infection; J20.9 Acute bronchitis, unspecified; E78.00 Pure hypercholesterolemia, unspecified; Z79.82 Long term (current) use of aspirin; Z79.84 Long term (current) use of oral hypoglycemic drugs; Z79.899 Other long term (current) drug therapy
CPT/HCPCS: 36415; 71046; 80048; 80053; 80305; 81001; 82550; 83735; 84484; 85025; 93005; 96365; 96366; 99217; 99219; 99285; A9270; G0378; G0480; J3480; J7040

== ENCOUNTER 2018-10-28 18:42 | Emergency (ER) | payer MEDICARE, MEDICAID ==
[2018-10-28] MEDS ORDERED: Sodium Chloride 0.9% 10 ML Syringe FLUSH PRN (18:55)
[2018-10-28] MEDS ORDERED: GI Cocktail Oral Solution 30 ML PO ONE (18:56)
[2018-10-28] MEDS ORDERED: Metoclopramide 10 MG/2 ML SDV IVPUSH ONE (18:57)
[2018-10-28] MEDS ORDERED: Sodium Chloride 0.9% 1,000 ML IV ONE (18:58)
[2018-10-28 19:26] LABS: CHLORIDE,CL 100 mmol/L (98-107); SODIUM,NA 140 mmol/L (136-145)
[2018-10-28 19:31] LABS: ANION GAP 15.9 mmol/L (10-20)
[2018-10-28 21:11] VITALS: BP 164/76
--- NOTE | 2018-10-28 23:38 | EDM.PDOC ---
ED HPI GENERAL MEDICAL PROBLEM - General Chief Complaint: General Stated Complaint: DEHYDRATED;WEAK Time Seen by Provider: 10/28/18 19:35 Source of Information: Reports: Patient History Limitations: Reports: No Limitations - History of Present Illness INITIAL COMMENTS - FREE TEXT/NARRATIVE: Pt. presents to ER with complaints of nausea, vomiting, and loose stools but no diarrhea. States that she feels she is dehydrated and is not able to hold down liquids on admission. States that she started feeling poorly yesterday. She complains of diffuse abdominal discomfort located in the upper quadrants. Denies any chest pain. No jaw, arm neck or back pain. Pt. states that she has not been diaphoretic or feverish. No chills. Denies any sick contacts. No new or obviously poorly prepared foods. She has not recently been on antibiotics. No recent hospitalizations. Pt. states that she is passing gas. No bloody or tarry stools. States that she is absent her gallbladder. Onset Date: 10/27/18 Location: Reports: Abdomen Quality: Reports: Ache Severity: Moderate Associated Symptoms: Reports: Nausea/Vomiting Treatments FUEL CELL ENGINEER: Reports: Other (see below) Other Treatments FUEL CELL ENGINEER: zofran abdominal Pain Score (Numeric/FACES): 6 - Related Data Allergies Allergy/AdvReac Type Severity Reaction Status Date / Time metformin Allergy Diarrhea Verified 08/14/18 19:49 Home Meds: Home Meds Lisinopril 10 mg PO DAILY 10/01/14 [History] Albuterol [Ventolin HFA] 2 puff INH Q6H PRN 10/01/17 [History] Aspirin 81 mg PO DAILY 10/01/17 [History] Furosemide [Lasix] 20 mg PO DAILY 10/01/17 [History] LORazepam 1 mg PO BID PRN 10/01/17 [History] Montelukast [Singulair] 10 mg PO BEDTIME 10/01/17 [History] Pantoprazole Sodium [Protonix] 40 mg PO DAILY 10/01/17 [History] atorvaSTATin [Lipitor] 40 mg PO BEDTIME 10/01/17 [History] Ondansetron [Zofran ODT] 4 mg PO Q8H PRN 08/14/18 [History] Umeclidinium Brm/Vilanterol Tr [Anoro Ellipta 62.5-25 MCG] 1 each IH DAILY 08/14 [History] amLODIPine Besylate [Norvasc] 10 mg PO DAILY 08/14/18 [History] busPIRone [Buspar] 5 mg PO BID 08/14/18 [History] Calcium Carbonate/Vitamin D3 [Calcium 600 + Vit D 400 Tablet] 1 each PO DAILY # 30 tablet 08/15/18 [Rx] Potassium Chloride 20 meq PO DAILY #30 tablet.er 08/15/18 [Rx] Past Medical History HEENT History: Reports: Cataract Cardiovascular History: Reports: High Cholesterol, Hypertension Respiratory History: Reports: Bronchitis, Recurrent, COPD Gastrointestinal History: Reports: GERD Psychiatric History: Reports: Depression Endocrine/Metabolic History: Reports: Diabetes, Type II - Infectious Disease History Infectious Disease History: Reports: None - Past Surgical History GI Surgical History: Reports: Cholecystectomy Female Surgical History: Reports: Section Social & Family History - Family History Family Medical History: Noncontributory - Tobacco Use Smoking Status *Q: Current Every Day Smoker Years of Tobacco use: 38 Packs/Tins Daily: 1 Used Tobacco, but Quit: No - Caffeine Use Caffeine Use: Reports: None - Recreational Drug Use Recreational Drug Use: No ED ROS GENERAL - Review of Systems Review Of Systems: See Below Constitutional: Reports: Malaise, Fatigue, Decreased Appetite HEENT: Reports: No Symptoms Respiratory: Reports: No Symptoms Cardiovascular: Reports: No Symptoms Endocrine: Reports: No Symptoms GI/Abdominal: Reports: Abdominal Pain, Anorexia, Decreased Appetite, Flatus, Nausea, Vomiting. Denies: Black Stool, Bloody Stool, Distension, Hematemesis, Hematochezia, Melena, Mucous in Stool : Reports: No Symptoms Musculoskeletal: Reports: No Symptoms Skin: Reports: No Symptoms Neurological: Reports: No Symptoms, Headache Psychiatric: Reports: No Symptoms Hematologic/Lymphatic: Reports: No Symptoms Immunologic: Reports: No Symptoms ED EXAM, GENERAL - Physical Exam Exam: See Below Exam Limited By: No Limitations General Appearance: Alert, WD/WN, No Apparent Distress Throat/Mouth: Normal Lips, Normal Voice, No Airway Compromise, Other (oral mucosa is dry.) Head: Atraumatic, Normocephalic Neck: Normal Inspection, Supple, Non-Tender, Full Range of Motion Respiratory/Chest: No Respiratory Distress, Decreased Breath Sounds (diminished , likely chronic due to smoking. No acute abnormal lung sounds noted.) Cardiovascular: Normal Peripheral Pulses, Regular Rate, Rhythm, No Edema, No Gallop, No JVD, No Murmur, No Rub Peripheral Pulses: 4+: Radial (L) GI/Abdominal: Normal Bowel Sounds, Soft, No Organomegaly, Tender (diffuse tenderness throughout upper quadrants. No peritoneal signs noted.). No: Distended, Guarding, Rigid, Rebound, Abnormal Bowel Sounds, Mass, Hepatomegaly, Splenomegaly (Female) Exam: Deferred Rectal (Female) Exam: Deferred Back Exam: Normal Inspection, Full Range of Motion Extremities: Normal Inspection, Normal Range of Motion, Non-Tender, No Pedal Edema, Normal Capillary Refill Neurological: Alert, Oriented, CN II-XII Intact, Normal Cognition, Normal Gait, Normal Reflexes, No Motor/Sensory Deficits EKG INTERPRETATION Rhythm: NSR [place]: Normal P-Wave: Present QRS: Normal ST-T: Normal QT: Normal Course - Vital Signs Last Recorded V/S: Last Vital Signs Temp 36.6 C 10/28/18 21:00 Pulse 91 10/28/18 21:00 Resp 16 10/28/18 21:00 BP 164/76 H 10/28/18 21:00 Pulse Ox 97 10/28/18 21:00 - Orders/Labs/Meds Orders: Active Orders 24 hr Category Date Time Status EKG Documentation Completion [RC] STAT Care 10/28/18 18:55 Active Abdomen 2V AP Flat Upright [CR] Stat Exams 10/28/18 19:32 Taken UA W/MICROSCOPIC [URIN] Stat Lab 10/28/18 19:55 Ordered Peripheral IV Insertion Adult [OM.PC] Routine Oth 10/28/18 18:56 Ordered Labs: Laboratory Tests 10/28/18 10/28/18 10/28/18 Range/Units 19:00 19:00 19:00 WBC 9.2 (4.0-10.0) x10^3/uL RBC 5.12 (4.00-5.50) x10^6/uL Hgb 15.2 (12.0-16.0) g/dL Hct 45.7 (33.0-47.0) % MCV 89.3 (78.0-93.0) fL MCH 29.7 (26.0-32.0) pg MCHC 33.3 (32.0-36.0) g/dL RDW Coeff of Will 14.4 (10.0-15.0) % Plt Count 291 (130-400) x10^3/uL Neut % (Auto) 52.5 (50.0-80.0) % Lymph % (Auto) 35.6 (25.0-50.0) % [place] % (Auto) 10.2 (2.0-11.0) % Eos % (Auto) 1.5 (0.0-4.0) % Baso % (Auto) 0.2 (0.2-1.2) % PT 9.9 L (10.0-12.8) SEC INR 0.9 L (2.0-3.5) Sodium 140 (136-145) mmol/L Potassium 3.9 (3.5-5.1) mmol/L Chloride 100 (98-107) mmol/L Carbon Dioxide 28 (21-32) mmol/L Anion Gap 15.9 (10-20) mmol/L BUN 11 (7-18) mg/dL Creatinine 0.8 (0.55-1.02) mg/dL Est Cr Clr Drug Dosing TNP Estimated GFR (MDRD) > 60 Glucose 111 H (74-106) mg/dL Calcium 9.8 (8.5-10.1) mg/dL Corrected Calcium 9.96 (8.5-10.1) mg/dL Phosphorus 4.3 (2.6-4.7) mg/dL Magnesium 2.1 (1.8-2.4) mg/dL Total Bilirubin 0.5 (0.2-1.0) mg/dL AST 14 L (15-37) U/L ALT 19 (14-59) U/L Alkaline Phosphatase 108 (46-116) U/L Troponin I < 0.017 (<=0.056) ng/mL C-Reactive Protein 0.3 (<=0.9) mg/dL Total Protein 7.6 (6.4-8.2) g/dL Albumin 3.8 (3.4-5.0) g/dL Globulin 3.8 Albumin/Globulin Ratio 1.00 Meds: Medications Discontinued Medications Generic Name Dose Route Start Last Admin Trade Name Freq PRN Reason Stop Dose Admin Al Hydroxide/Mg Hydroxide 30 ml 10/28/18 18:56 10/28/18 19:09 Gi Cocktail PO 10/28/18 18:57 30 ml ONETIME ONE Administration Sodium Chloride 1,000 mls @ 1,000 mls/hr 10/28/18 18:58 10/28/18 19:08 Normal Saline IV 10/28/18 19:57 1,000 mls/hr .BOLUS ONE Administration Metoclopramide HCl 5 mg 10/28/18 18:57 10/28/18 19:10 Reglan IVPUSH 10/28/18 18:58 5 mg ONETIME ONE Administration Sodium Chloride 10 ml 10/28/18 18:55 Saline Flush FLUSH ASDIRECTED PRN Keep Vein Open - Radiology Interpretation Free Text/Narrative:: flat and upright abd. xrays were negative Departure - Departure Time of Disposition: 23:00 Disposition: Home, Self-Care 01 Condition: Good Clinical Impression: Gastroenteritis - Discharge Information Instructions: Ondansetron oral dissolving tablet, Viral Gastroenteritis, Adult , [id number] Referrals: Leona Walden DO [Primary Care Provider] - Forms: ED Department Discharge Additional Instructions: Zofran ODT 1 tab every 6 hours as needed for nausea/vomiting. Drink plenty of fluids. Clear liquid diet tomorrow, then advance diet on Monday (or as feeling better). Follow-up in clinic in 10-14 days for recheck. - My Orders Last 24 Hours: My Active Orders 10/28/18 18:55 EKG Documentation Completion [RC] STAT 10/28/18 18:56 Peripheral IV Insertion Adult [OM.PC] Routine 10/28/18 19:32 Abdomen 2V AP Flat Upright [CR] Stat 10/28/18 19:55 UA W/MICROSCOPIC [URIN] Stat - Assessment/Plan Last 24 Hours: My Active Orders 10/28/18 18:55 EKG Documentation Completion [RC] STAT 10/28/18 18:56 Peripheral IV Insertion Adult [OM.PC] Routine 10/28/18 19:32 Abdomen 2V AP Flat Upright [CR] Stat 10/28/18 19:55 UA W/MICROSCOPIC [URIN] Stat Plan: Zofran ODT 1 tab every 6 hours as needed for nausea/vomiting. Drink plenty of fluids. Clear liquid diet tomorrow, then advance diet on Monday (or as feeling better). Follow-up in clinic in 10-14 days for recheck.
--- NOTE | 2018-10-29 07:54 | CR ---
[id number] RAD/RAD Abd Flat and Upright 2V Exam: RAD Abd Flat and Upright 2V Clinical Data: ABDOMINAL PAIN COMPARISON: CORRELATION IS MADE WITH THE EXAM OF OCTOBER 01, 2014. FINDINGS: There is a mild ileus. There is no free air. There are surgical changes. There is no organomegaly or pathologic calcification. IMPRESSION: MILD ILEUS. Sánchez Mc MD 10/29/18 0753 Thank you for allowing us to participate in the care of your patient.
== END 2018-10-28 21:00 | disposition home or self-care (01) ==
LOC: VM.ED 18:42
DX: K52.9 Noninfective gastroenteritis and colitis, unspecified (principal); E78.00 Pure hypercholesterolemia, unspecified; I10 Essential (primary) hypertension; J44.9 Chronic obstructive pulmonary disease, unspecified; E11.9 Type 2 diabetes mellitus without complications; K21.9 Gastro-esophageal reflux disease without esophagitis; F17.210 Nicotine dependence, cigarettes, uncomplicated; Z79.899 Other long term (current) drug therapy; Z79.82 Long term (current) use of aspirin
CPT/HCPCS: 74019; 80053; 81002; 83735; 84100; 84484; 85025; 85610; 86140; 93005; 96361; 96374; 99284-25; A9270-GY; J2765; J7030

== ENCOUNTER 2018-11-11 15:28 | Emergency (ER) | payer MEDICARE, MEDICAID ==
[2018-11-11 15:37] VITALS: BP 136/54
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
== END 2018-11-11 16:05 | disposition home or self-care (01) ==
LOC: VM.ED 15:28
DX: F41.9 Anxiety disorder, unspecified (principal); E78.00 Pure hypercholesterolemia, unspecified; I10 Essential (primary) hypertension; J44.9 Chronic obstructive pulmonary disease, unspecified; E11.9 Type 2 diabetes mellitus without complications; F32.9 Major depressive disorder, single episode, unspecified; Z88.8 Allergy status to other drugs, medicaments and biological substances; Z79.899 Other long term (current) drug therapy; Z79.82 Long term (current) use of aspirin
CPT/HCPCS: 96372; 99283; 99283-GF; J3230

== ENCOUNTER 2018-12-23 12:34 | Emergency (ER) | payer MEDICARE, MEDICAID ==
[2018-12-23] MEDS ORDERED: cloNIDine 0.1 MG Tab PO ONE (12:37)
[2018-12-23] MEDS ORDERED: hydrOXYzine HCl 25 MG Tab PO ONE (12:37)
[2018-12-23 12:44] VITALS: BP 129/65
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
== END 2018-12-23 12:58 | disposition home or self-care (01) ==
LOC: VM.ED 12:34
DX: F41.9 Anxiety disorder, unspecified (principal); E78.00 Pure hypercholesterolemia, unspecified; I10 Essential (primary) hypertension; E11.9 Type 2 diabetes mellitus without complications; K21.9 Gastro-esophageal reflux disease without esophagitis; Z88.8 Allergy status to other drugs, medicaments and biological substances; Z79.82 Long term (current) use of aspirin; Z79.899 Other long term (current) drug therapy
CPT/HCPCS: 99282; 99284; A9270

== ENCOUNTER 2019-12-06 17:42 | Emergency (ER) | payer MEDICARE, MEDICAID ==
--- NOTE | 2019-12-06 19:18 | EDM.PDOC ---
ED HPI GENERAL MEDICAL PROBLEM - General Chief Complaint: General Stated Complaint: dehydration Time Seen by Provider: 12/06/19 17:50 Source of Information: Reports: Patient History Limitations: Reports: No Limitations - History of Present Illness INITIAL COMMENTS - FREE TEXT/NARRATIVE: Comes into the emergency department with concerns and complaints of dehydration. Patient also states she has an increase in anxiety. Patient was recently given hydroxyzine, weight to help with her anxiety she states that that has not been helping with anxiety. Over the course the last 24 to 48 hours the patient has noticed that she has not been able to see her veins in her body as well. And she is concerned with dehydration. Patient denies being nauseated, vomiting, increased urination, or diarrhea. Patient also denies any fever or illnesses. Patient states that she has been drinking adequate amount of water and producing urine like normal. Denies any concerns or complaints at the present time and would just like to be evaluated and ensure she is not dehydrated. Onset: Gradual Quality: Reports: Other Severity: Mild Improves with: Reports: None Worsens with: Reports: None Associated Symptoms: Reports: No Other Symptoms - Related Data Allergies Allergy/AdvReac Type Severity Reaction Status Date / Time metformin Allergy Diarrhea Verified 12/06/19 18:01 Home Meds: Home Meds Lisinopril 10 mg PO DAILY 10/01/14 [History] Albuterol [Ventolin HFA] 2 puff INH Q6H PRN 10/01/17 [History] Aspirin 81 mg PO DAILY 10/01/17 [History] Furosemide [Lasix] 20 mg PO DAILY 10/01/17 [History] LORazepam 1 mg PO BID PRN 10/01/17 [History] Montelukast [Singulair] 10 mg PO BEDTIME 10/01/17 [History] Pantoprazole Sodium [Protonix] 40 mg PO DAILY 10/01/17 [History] atorvaSTATin [Lipitor] 40 mg PO BEDTIME 10/01/17 [History] Ondansetron [Zofran ODT] 4 mg PO Q8H PRN 08/14/18 [History] Umeclidinium Brm/Vilanterol Tr [Anoro Ellipta 62.5-25 MCG] 1 each IH DAILY 08/14 [History] amLODIPine Besylate [Norvasc] 10 mg PO DAILY 08/14/18 [History] busPIRone [Buspar] 5 mg PO BID 08/14/18 [History] Calcium Carbonate/Vitamin D3 [Calcium 600 + Vit D 400 Tablet] 1 each PO DAILY # 30 tablet 08/15/18 [Rx] Potassium Chloride 20 meq PO DAILY #30 tablet.er 08/15/18 [Rx] Past Medical History HEENT History: Reports: Cataract Cardiovascular History: Reports: High Cholesterol, Hypertension Respiratory History: Reports: Bronchitis, Recurrent, COPD Gastrointestinal History: Reports: GERD Psychiatric History: Reports: Depression Endocrine/Metabolic History: Reports: Diabetes, Type II - Infectious Disease History Infectious Disease History: Reports: None - Past Surgical History GI Surgical History: Reports: Cholecystectomy Female Surgical History: Reports: Section Social & Family History - Family History Family Medical History: Noncontributory - Caffeine Use Caffeine Use: Reports: None ED ROS GENERAL - Review of Systems Review Of Systems: See Below Constitutional: Reports: No Symptoms HEENT: Reports: No Symptoms Respiratory: Reports: No Symptoms Cardiovascular: Reports: No Symptoms GI/Abdominal: Reports: No Symptoms : Reports: No Symptoms Musculoskeletal: Reports: No Symptoms Skin: Reports: No Symptoms Neurological: Reports: No Symptoms Psychiatric: Reports: No Symptoms Hematologic/Lymphatic: Reports: No Symptoms Immunologic: Reports: No Symptoms ED EXAM, GENERAL - Physical Exam Exam: See Below Exam Limited By: No Limitations General Appearance: Alert, WD/WN, No Apparent Distress Eye Exam: Bilateral Eye: EOMI, PERRL Nose: Normal Inspection, Normal Mucosa Throat/Mouth: Normal Inspection, Normal Lips, No Airway Compromise Head: Atraumatic, Normocephalic Neck: Normal Inspection, Supple, Non-Tender, Full Range of Motion Respiratory/Chest: No Respiratory Distress, Lungs Clear, Normal Breath Sounds, No Accessory Muscle Use, Chest Non-Tender Cardiovascular: Normal Peripheral Pulses, Regular Rate, Rhythm, No Edema Peripheral Pulses: 4+: Radial (L), Radial (R), Dorsalis Pedis (L), Dorsalis Pedis (R) GI/Abdominal: Normal Bowel Sounds, Soft, Non-Tender, No Distention, Pelvis Stable Back Exam: Normal Inspection, Full Range of Motion Extremities: Normal Inspection, Normal Range of Motion, Non-Tender, No Pedal Edema, Normal Capillary Refill Neurological: Alert, Oriented, Normal Gait Psychiatric: Normal Affect, Normal Mood Skin Exam: Warm, Dry, Intact, Normal Color Course - Vital Signs Last Recorded V/S: Last Vital Signs Temp 36.6 C 12/06/19 18:01 Pulse 107 H 12/06/19 18:01 Resp 18 12/06/19 18:01 BP 131/60 12/06/19 18:01 Pulse Ox 98 12/06/19 18:01 - Orders/Labs/Meds Labs: Laboratory Tests 12/06/19 12/06/19 12/06/19 Range/Units 18:05 19:00 19:00 WBC 8.0 (4.0-10.0) x10^3/uL RBC 5.35 (4.00-5.50) x10^6/uL Hgb 15.7 (12.0-16.0) g/dL Hct 46.1 (33.0-47.0) % MCV 86.2 D (78.0-93.0) fL MCH 29.3 (26.0-32.0) pg MCHC 34.1 (32.0-36.0) g/dL RDW Coeff of Will 13.8 (10.0-15.0) % Plt Count 300 (130-400) x10^3/uL Neut % (Auto) 66.1 (50.0-80.0) % Lymph % (Auto) 23.5 L (25.0-50.0) % [place] % (Auto) 9.7 (2.0-11.0) % Eos % (Auto) 0.5 (0.0-4.0) % Baso % (Auto) 0.2 (0.2-1.2) % Sodium 144 (136-145) mmol/L Potassium 3.7 (3.5-5.1) mmol/L Chloride 104 (98-107) mmol/L Carbon Dioxide 29 (21-32) mmol/L Anion Gap 14.7 (10-20) mmol/L BUN 7 (7-18) mg/dL Creatinine 0.8 (0.55-1.02) mg/dL Est Cr Clr Drug Dosing TNP Estimated GFR (MDRD) > 60 Glucose 113 H (74-106) mg/dL Calcium 9.7 (8.5-10.1) mg/dL Corrected Calcium 9.54 (8.5-10.1) mg/dL Total Bilirubin 0.4 (0.2-1.0) mg/dL AST 17 (15-37) U/L ALT 19 (14-59) U/L Alkaline Phosphatase 112 (46-116) U/L Total Protein 8.5 H (6.4-8.2) g/dL Albumin 4.2 (3.4-5.0) g/dL Globulin 4.3 Albumin/Globulin Ratio 0.98 Urine Color Yellow (YELLOW) Urine Appearance Clear (CLEAR) Urine pH 7.0 (5.0-8.0) Ur Specific [place] 1.015 Urine Protein Negative (NEGATIVE) mg/dL Urine Glucose (UA) Negative (NEGATIVE) mg/dL Urine Ketones Negative (NEGATIVE) mg/dL Urine Occult Blood Small H (NEGATIVE) Urine Nitrite Negative (NEGATIVE) Urine Bilirubin Negative (NEGATIVE) Urine Urobilinogen 0.2 (0.2) EU/dL Ur Leukocyte Esterase Negative (NEGATIVE) Urine RBC 0-5 (NOT SEEN) /HPF Urine WBC 0-5 (NOT SEEN) /HPF Ur Squamous Epith Cells Rare (NEGATIVE) /HPF Urine Bacteria Occasional H (NEGATIVE) /HPF Urine Mucus Not seen (NEGATIVE) /LPF Meds: Medications Discontinued Medications Generic Name Dose Route Start Last Admin Trade Name Freq PRN Reason Stop Dose Admin Acetaminophen 1,000 mg 12/06/19 19:55 12/06/19 20:02 Tylenol Extra Strength PO 12/06/19 19:56 1,000 mg ONETIME ONE Administration Departure - Departure Time of Disposition: 20:30 Disposition: Home, Self-Care 01 Condition: Good Clinical Impression: Anxiety - Discharge Information *PRESCRIPTION DRUG MONITORING PROGRAM REVIEWED*: Not Applicable *COPY OF PRESCRIPTION DRUG MONITORING REPORT IN PATIENT ROSY: Not Applicable Instructions: Living With Anxiety Referrals: Leona Walden DO [Primary Care Provider] - Forms: ED Department Discharge Additional Instructions: 1. rest 2. increase your water intake 3. Continue all at home medications 4. Activity and diet as tolerated 5. Can take over the counter Tylenol or ibuprofen for any pain or discomfort 6. Follow up with PCP if symptoms continue, return, or progress 7. Call with any questions or concerns Sepsis Event Note - Focused Exam Vital Signs: Vital Signs Temp Pulse Resp BP Pulse Ox 12/06/19 18:01 36.6 C 107 H 18 131/60 98 Date Exam was Performed: 05/15/20 Time Exam was Performed: 20:37 - Assessment/Plan Assessment:: 1. anxiety 2. concern with being dehydrated Plan: 1. Labs completed in the ER. Results reviewed with the patient 2. UA completed in ER. Results reviewed with the patient 3. Patient and nursing staff was updated regarding the plan of care 4. Education provided the patient regarding activity, diet, rest, over-the- counter medication modalities, and follow-up care was provided 5. Patient and family are agreeable to the above plan of care 6. All questions and concerns were addressed with the patient and family prior to discharge
[2019-12-06 19:38] VITALS: BP 131/60; PULSE 107
[2019-12-06] MEDS ORDERED: Acetaminophen 500 MG Tab PO ONE (19:55)
[2019-12-06 20:21] LABS: CHLORIDE,CL 104 mmol/L (98-107); SODIUM,NA 144 mmol/L (136-145)
[2019-12-06 20:23] LABS: ANION GAP 14.7 mmol/L (10-20)
== END 2019-12-06 20:46 | disposition home or self-care (01) ==
LOC: VM.ED 17:42
DX: F41.9 Anxiety disorder, unspecified (principal); E78.00 Pure hypercholesterolemia, unspecified; I10 Essential (primary) hypertension; J44.9 Chronic obstructive pulmonary disease, unspecified; K21.9 Gastro-esophageal reflux disease without esophagitis; F32.9 Major depressive disorder, single episode, unspecified; E11.9 Type 2 diabetes mellitus without complications; Z88.8 Allergy status to other drugs, medicaments and biological substances; Z79.899 Other long term (current) drug therapy; Z79.82 Long term (current) use of aspirin
CPT/HCPCS: 36415; 80053; 81001; 85025; 99284; A9270

== ENCOUNTER 2020-07-27 06:45 | Emergency (ER) | payer MEDICARE, MEDICAID ==
[2020-07-27 06:47] VITALS: BP 142/61; PULSE 98
--- NOTE | 2020-07-27 07:07 | EDM.PDOC ---
ED HPI GENERAL MEDICAL PROBLEM - General Chief Complaint: Respiratory Problem Stated Complaint: SOB feels bad Time Seen by Provider: 07/27/20 06:45 Source of Information: Reports: Patient History Limitations: Reports: No Limitations - History of Present Illness INITIAL COMMENTS - FREE TEXT/NARRATIVE: 70-year-old white female the presents ER with shortness of breath that started about 7:00 last night and counted just feeling bad all over secondary to not sleeping all night. She denies any TORO PND orthopnea states usually she can lay flat and sleep with no issues on her side states she was trying to sleep last night just could not secondary to the shortness of breath. She has never been hospitalized for COPD never been intubated She denies any Covid exposure no fever or chills no change of taste or smell or loss of either no pedal edema or sense of smothering she smokes approximately 2 packs cigarettes a day but has not smoked since last night she is not on home O2 Duration: Hour(s): Improves with: Reports: None Worsens with: Reports: None Associated Symptoms: Reports: Cough, Shortness of Breath. Denies: Chest Pain, cough w sputum, Diaphoresis, Fever/Chills, Headaches, Loss of Appetite, Nausea/Vomiting, Rash, Syncope, Weakness - Related Data Allergies Allergy/AdvReac Type Severity Reaction Status Date / Time metformin Allergy Diarrhea Verified 12/06/19 18:01 Home Meds: Home Meds Lisinopril 10 mg PO DAILY 10/01/14 [History] Albuterol [Ventolin HFA] 2 puff INH Q6H PRN 10/01/17 [History] Aspirin 81 mg PO DAILY 10/01/17 [History] Furosemide [Lasix] 20 mg PO DAILY 10/01/17 [History] LORazepam 1 mg PO BID PRN 10/01/17 [History] Montelukast [Singulair] 10 mg PO BEDTIME 10/01/17 [History] Pantoprazole Sodium [Protonix] 40 mg PO DAILY 10/01/17 [History] atorvaSTATin [Lipitor] 40 mg PO BEDTIME 10/01/17 [History] Ondansetron [Zofran ODT] 4 mg PO Q8H PRN 08/14/18 [History] Umeclidinium Brm/Vilanterol Tr [Anoro Ellipta 62.5-25 MCG] 1 each IH DAILY 08/14/18 [History] amLODIPine Besylate [Norvasc] 10 mg PO DAILY 08/14/18 [History] busPIRone [Buspar] 5 mg PO BID 08/14/18 [History] Calcium Carbonate/Vitamin D3 [Calcium 600 + Vit D 400 Tablet] 1 each PO DAILY #30 tablet 08/15/18 [Rx] Potassium Chloride 20 meq PO DAILY #30 tablet.er 08/15/18 [Rx] Past Medical History HEENT History: Reports: Cataract Cardiovascular History: Reports: High Cholesterol, Hypertension Respiratory History: Reports: Bronchitis, Recurrent, COPD Gastrointestinal History: Reports: GERD Psychiatric History: Reports: Depression Endocrine/Metabolic History: Reports: Diabetes, Type II - Infectious Disease History Infectious Disease History: Reports: None - Past Surgical History GI Surgical History: Reports: Cholecystectomy Female Surgical History: Reports: Section Social & Family History - Family History Family Medical History: No Pertinent Family History - Caffeine Use Caffeine Use: Reports: None ED ROS GENERAL - Review of Systems Review Of Systems: See Below Constitutional: Reports: No Symptoms, Fatigue. Denies: Fever, Chills, Malaise, Weakness HEENT: Reports: No Symptoms Respiratory: Reports: Shortness of Breath, Cough. Denies: Wheezing, Pleuritic Chest Pain Cardiovascular: Reports: No Symptoms. Denies: Chest Pain, Blood Pressure Pr oblem, Claudication, Dyspnea on Exertion, Edema, Lightheadedness, Orthopnea, Syncope Endocrine: Reports: Fatigue GI/Abdominal: Reports: No Symptoms : Reports: No Symptoms Musculoskeletal: Reports: No Symptoms Skin: Reports: No Symptoms Neurological: Reports: No Symptoms. Denies: Confusion, Dizziness, Headache, Numbness, Paresthesia Psychiatric: Reports: No Symptoms Hematologic/Lymphatic: Reports: No Symptoms Immunologic: Reports: No Symptoms ED EXAM, GENERAL - Physical Exam Exam: See Below Exam Limited By: No Limitations General Appearance: Alert, WD/WN, No Apparent Distress, Other (Patient looks well sitting up in the bed in no acute distress no respiratory distress talking 20 word sentences wide open) Eye Exam: Bilateral Eye: EOMI, Normal Inspection Nose: Normal Inspection, Normal Mucosa, No Blood Throat/Mouth: Normal Inspection, Normal Lips, Normal Teeth, Normal Gums, Normal Oropharynx, Normal Voice, No Airway Compromise Head: Atraumatic, Normocephalic Neck: Normal Inspection, Supple, Non-Tender, Full Range of Motion Respiratory/Chest: No Respiratory Distress, Lungs Clear, Normal Breath Sounds, No Accessory Muscle Use, Chest Non-Tender. No: Decreased Breath Sounds, Crackles, Rales, Rhonchi, Wheezing Cardiovascular: Normal Peripheral Pulses, Regular Rate, Rhythm, No Edema, No Gallop, No JVD, No Murmur, No Rub GI/Abdominal: Normal Bowel Sounds, Soft, Non-Tender, No Organomegaly, No Distention Extremities: Normal Inspection, Normal Range of Motion, Non-Tender, No Pedal Edema, Normal Capillary Refill. No: Pedal Edema Neurological: Alert, Oriented, CN II-XII Intact, Normal Cognition, No Motor/Sensory Deficits Psychiatric: Normal Affect, Normal Mood Skin Exam: Warm, Dry, Intact, Normal Color, No Rash Course - Vital Signs Text/Narrative:: cbc bmp ekg cxr covid Covid negative potassium 3.1 patient rechecked after breathing treatment states she feels better she is talking on the cell phone wide open no acute distress sats at 95 96% on room air Patient will be given 40 mg potassium p.o. and 400 Mag-Ox CBC White blood cell count within normal limits we will treat the patient for possible COPD exacerbation with Z-Eddie and prednisone patient instructed to follow-up with primary care provider in the next 24 hours Last Recorded V/S: Last Vital Signs Temp 36.2 C 07/27/20 06:46 Pulse 98 07/27/20 06:46 Resp 18 07/27/20 06:46 BP 142/61 H 07/27/20 06:46 Pulse Ox 95 07/27/20 06:46 - Orders/Labs/Meds Orders: Active Orders 24 hr Category Date Time Status EKG 12 Lead [EKG Documentation Completion] [RC] AM Care 07/27/20 07:05 Active RT Aerosol Therapy [RC] ASDIRECTED Care 07/27/20 07:10 Active Labs: Laboratory Tests 07/27/20 07/27/20 07/27/20 Range/Units 07:20 07:50 07:50 WBC 7.8 (4.0-10.0) x10^3/uL RBC 5.19 (4.00-5.50) x10^6/uL Hgb 15.2 (12.0-16.0) g/dL Hct 44.4 (33.0-47.0) % MCV 85.5 (78.0-93.0) fL MCH 29.3 (26.0-32.0) pg MCHC 34.2 (32.0-36.0) g/dL RDW Coeff of Will 13.9 (10.0-15.0) % Plt Count 271 (130-400) x10^3/uL Neut % (Auto) 74.3 (50.0-80.0) % Lymph % (Auto) 17.5 L (25.0-50.0) % [place] % (Auto) 7.3 (2.0-11.0) % Eos % (Auto) 0.6 (0.0-4.0) % Baso % (Auto) 0.3 (0.2-1.2) % Sodium 140 (136-145) mmol/L Potassium 3.1 L (3.5-5.1) mmol/L Chloride 104 (98-107) mmol/L Carbon Dioxide 27 (21-32) mmol/L Anion Gap 12.1 (10-20) mmol/L BUN 6 L (7-18) mg/dL Creatinine 0.8 (0.55-1.02) mg/dL Est Cr Clr Drug Dosing TNP Estimated GFR (MDRD) > 60 Glucose 132 H (74-106) mg/dL Calcium 9.1 (8.5-10.1) mg/dL NT-Pro-B Natriuret Pep (<=125) pg/mL SARS CoV-2 RNA Rapid SUSANA Negative (NEGATIVE) 07/27/20 Range/Units 07:50 WBC (4.0-10.0) x10^3/uL RBC (4.00-5.50) x10^6/uL Hgb (12.0-16.0) g/dL Hct (33.0-47.0) % MCV (78.0-93.0) fL MCH (26.0-32.0) pg MCHC (32.0-36.0) g/dL RDW Coeff of Will (10.0-15.0) % Plt Count (130-400) x10^3/uL Neut % (Auto) (50.0-80.0) % Lymph % (Auto) (25.0-50.0) % [place] % (Auto) (2.0-11.0) % Eos % (Auto) (0.0-4.0) % Baso % (Auto) (0.2-1.2) % Sodium (136-145) mmol/L Potassium (3.5-5.1) mmol/L Chloride (98-107) mmol/L Carbon Dioxide (21-32) mmol/L Anion Gap (10-20) mmol/L BUN (7-18) mg/dL Creatinine (0.55-1.02) mg/dL Est Cr Clr Drug Dosing Estimated GFR (MDRD) Glucose (74-106) mg/dL Calcium (8.5-10.1) mg/dL NT-Pro-B Natriuret Pep 64 (<=125) pg/mL SARS CoV-2 RNA Rapid SUSANA (NEGATIVE) Meds: Medications Discontinued Medications Generic Name Dose Route Start Last Admin Trade Name Freq PRN Reason Stop Dose Admin Albuterol/Ipratropium 3 ml 07/27/20 07:09 07/27/20 07:20 Duoneb 3.0-0.5 Mg/3 Ml NEB 07/27/20 07:10 3 ml ONETIME ONE Administration Magnesium Oxide 400 mg 07/27/20 08:40 07/27/20 08:56 Magnesium Oxide PO 07/27/20 08:41 400 mg ONETIME ONE Administration Methylprednisolone Sodium Succinate 125 mg 07/27/20 08:41 07/27/20 08:57 Solu-Medrol IM 07/27/20 08:42 125 mg ONETIME ONE Administration Potassium Chloride 40 meq 07/27/20 08:38 07/27/20 08:57 Klor-Con M20 PO 07/27/20 08:39 40 meq ONETIME ONE Administration Departure - Departure Time of Disposition: 09:25 Disposition: Home, Self-Care 01 Clinical Impression: SOB (shortness of breath), Hypokalemia, COPD (chronic obstructive pulmonary disease) - Discharge Information *PRESCRIPTION DRUG MONITORING PROGRAM REVIEWED*: Not Applicable *COPY OF PRESCRIPTION DRUG MONITORING REPORT IN PATIENT ROSY: Not Applicable Instructions: Chronic Obstructive Pulmonary Disease Exacerbation, [id number], Hypokalemia Referrals: Leona Wadlen DO [Primary Care Provider] - Forms: ED Department Discharge Additional Instructions: Follow-up with your primary care provider in the next 24 hours return to the emergency room if anything changes or gets worse Sepsis Event Note (ED) - Evaluation Sepsis Screening Result: No Definite Risk - Focused Exam Vital Signs: Vital Signs Temp Pulse Resp BP Pulse Ox 07/27/20 06:46 36.2 C 98 18 142/61 H 95 - Problem List & Annotations (1) Hypokalemia SNOMED Code(s): 89559631 Code(s): E87.6 - HYPOKALEMIA Status: Acute Current Visit: Yes (2) COPD (chronic obstructive pulmonary disease) SNOMED Code(s): 67557217 Code(s): J44.9 - CHRONIC OBSTRUCTIVE PULMONARY DISEASE, UNSPECIFIED Status: Chronic Current Visit: Yes (3) SOB (shortness of breath) SNOMED Code(s): 619145036 Code(s): R06.02 - SHORTNESS OF BREATH Status: Acute Current Visit: Yes (4) Acute hypokalemia SNOMED Code(s): 25902276 Code(s): E87.6 - HYPOKALEMIA Status: Resolved Current Visit: No Onset Date: ~08/14/18 - My Orders Last 24 Hours: My Active Orders 07/27/20 07:05 EKG 12 Lead [EKG Documentation Completion] [RC] AM 07/27/20 07:10 RT Aerosol Therapy [RC] ASDIRECTED - Assessment/Plan Last 24 Hours: My Active Orders 07/27/20 07:05 EKG 12 Lead [EKG Documentation Completion] [RC] AM 07/27/20 07:10 RT Aerosol Therapy [RC] ASDIRECTED
[2020-07-27] MEDS ORDERED: Albuterol/Ipratropium 3.0-0.5 MG/3 ML Neb Soln NEB ONE (07:09)
--- NOTE | 2020-07-27 07:56 | CR ---
[id number] RAD/RAD Chest PA or AP 1V EXAM: RAD Chest PA or AP 1V INDICATION: SHORTNESS OF BREATH. COMPARISON: August 14, 2018. DISCUSSION: Mild cardiomegaly central vascular congestion, findings are similar to the prior examination. Bibasal interlobular septal thickening. Findings are nonspecific but can be seen as early changes of interstitial fluid retention. Correlate for edema/CHF exacerbation. IMPRESSION: As above. Tho Hdz MD 07/27/20 0755 Thank you for allowing us to participate in the care of your patient.
[2020-07-27 08:09] LABS: ANION GAP 12.1 mmol/L (10-20); CHLORIDE,CL 104 mmol/L (98-107); SODIUM,NA 140 mmol/L (136-145)
[2020-07-27] MEDS ORDERED: Potassium Chloride 20 MEQ Tab.ER PO ONE (08:38)
[2020-07-27] MEDS ORDERED: Magnesium Oxide 400 MG Tab PO ONE (08:40)
[2020-07-27] MEDS ORDERED: methylPREDNISolone Sodium Succinate 125 MG/2 ML SDV IM ONE (08:41)
== END 2020-07-27 09:40 | disposition home or self-care (01) ==
LOC: VM.ED 06:45
DX: J44.9 Chronic obstructive pulmonary disease, unspecified (principal); E87.6 Hypokalemia; E78.00 Pure hypercholesterolemia, unspecified; I10 Essential (primary) hypertension; K21.9 Gastro-esophageal reflux disease without esophagitis; F32.9 Major depressive disorder, single episode, unspecified; Z79.82 Long term (current) use of aspirin; Z79.899 Other long term (current) drug therapy; Z20.822 Contact with and (suspected) exposure to COVID-19; Z88.8 Allergy status to other drugs, medicaments and biological substances
CPT/HCPCS: 36415; 71045; 80048; 83880; 85025; 93005; 94640; 96372; 99284; 99285-25; A9270-GY; J2930; J7620-GY; U0002

== ENCOUNTER 2021-02-03 17:39 | Observation (INO) | payer MEDICARE, MEDICAID ==
[2021-02-03] MEDS ORDERED: LORazepam 1 MG Tab PO ONE (17:48)
[2021-02-03] MEDS ORDERED: Sodium Chloride 0.9% 1,000 ML IV ONE (17:48)
[2021-02-03] MEDS ORDERED: Sodium Chloride 0.9% 10 ML Syringe FLUSH PRN (17:48)
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
[2021-02-03 18:53] LABS: CHLORIDE,CL 102 mmol/L (98-107); SODIUM,NA 143 mmol/L (136-145)
[2021-02-03 18:56] LABS: ANION GAP 11.9 mmol/L (5-15)
[2021-02-03] MEDS ORDERED: Potassium Chloride 10% 20 MEQ/15 ML Soln 15 ML UD Cup PO ONE ×2 (18:56→22:24)
--- NOTE | 2021-02-03 20:08 | CR ---
[id number] RAD/RAD Chest PA And Lateral EXAM: RAD Chest PA And Lateral INDICATION: SHORTNESS OF BREATH COMPARISON: July 27, 2020. DISCUSSION/IMPRESSION: Radiopaque object on the outside of the body projects over the left apex and midlung, limiting evaluation. Within this limitation, no evidence of an acute cardiopulmonary abnormality. Heart size is unchanged from the prior examination. Tho Hdz MD 02/03/212006 Thank you for allowing us to participate in the care of your patient.
[2021-02-03] MEDS ORDERED: methylPREDNISolone Sodium Succinate 125 MG/2 ML SDV IVPUSH ONE (20:21)
[2021-02-03] MEDS ORDERED: Acetaminophen/HYDROcodone 325-5 MG Tab PO PRN (20:40)
[2021-02-03] MEDS ORDERED: Albuterol 0.083% 2.5 MG/3 ML Neb Soln NEB PRN (20:40)
[2021-02-03] MEDS ORDERED: Ondansetron 4 MG Tab.DIS PO PRN (20:40)
[2021-02-03] MEDS ORDERED: Docusate Sodium 100 MG Cap PO PRN (20:40)
[2021-02-03] MEDS ORDERED: Acetaminophen 325 MG Tab PO PRN (20:40)
[2021-02-03] MEDS ORDERED: LORazepam 2 MG/ML SDV IVPUSH PRN (20:47)
[2021-02-03] MEDS ORDERED: Flumazenil 0.1 MG/ML 5 ML MDV IVPUSH PRN (20:47)
[2021-02-03] MEDS: Sodium Chloride 0.9% with KCl 1,000 ML IV SCH (20:48)
[2021-02-03] MEDS ORDERED: LORazepam 1 MG Tab PO PRN (20:50)
[2021-02-03] MEDS: Nicotine 21 MG/24 Hr Patch TRDERM SCH (21:41)
[2021-02-03] MEDS ORDERED: Take Home: Albuterol 18 GM Inhaler, 1 Inhaler Pack INH PRN (23:20)
[2021-02-04] MEDS: Sodium Chloride 0.9% with KCl 1,000 ML IV SCH ×2 (00:50→06:33)
[2021-02-04 06:00] VITALS: BP 120/54; PULSE 84
[2021-02-04] MEDS ORDERED: Potassium Chloride 10% 20 MEQ/15 ML Soln 15 ML UD Cup PO ONE (06:00)
[2021-02-04 06:47] LABS: ANION GAP 10.8 mmol/L (5-15); CHLORIDE,CL 110 mmol/L (98-107); SODIUM,NA 144 mmol/L (136-145)
--- NOTE | 2021-02-04 07:35 | PCM.DCSUM1 ---
Discharge Summary - Hospital Course Free Text/Narrative:: Patient was admitted to observation for hypokalemia and anxiety. She is doing much better this morning. NO longer short of breath, less anxious and has an appointment with her PCP today for refill medications. Has oral potatssium for home. VSS. NO complaints HPI Initial Comments: presented for shortness of breath, anxiety, admitted for hypokalemia Diagnosis: Stroke: No Modified Kale Scale: No Signif.Disability Despite Sympt.Able to Carry Out Usual Act./Duties (unchanged from previous) Modified Floyd Scale Score: 1 - Discharge Data Discharge Date: 02/04/21 Discharge Disposition: Home, Self-Care 01 Condition: Good - Referral to Home Health Primary Care Physician: Leona Walden, DO - Patient Summary/Data Recommended Follow-up Testing/Procedures: follow up with PCP for medication refil Hospital Course: Uneventful, received IV potassium and oral potassium. Slept well, not on oxygen, less anxious and breathing well - Patient Instructions Diet: Diabetic Diet Activity: As Tolerated - Discharge Plan *PRESCRIPTION DRUG MONITORING PROGRAM REVIEWED*: Not Applicable *COPY OF PRESCRIPTION DRUG MONITORING REPORT IN PATIENT ROSY: Not Applicable Tobacco Cessation Medication: Prescription Refused Home Medications: Home Meds Lisinopril 10 mg PO DAILY 10/01/14 [History] Albuterol [Ventolin HFA] 2 puff INH Q6H PRN 10/01/17 [History] Aspirin 81 mg PO DAILY 10/01/17 [History] Furosemide [Lasix] 20 mg PO DAILY 10/01/17 [History] LORazepam 2 mg PO BID PRN 10/01/17 [History] Montelukast [Singulair] 10 mg PO BEDTIME 10/01/17 [History] Pantoprazole Sodium [Protonix] 40 mg PO DAILY 10/01/17 [History] atorvaSTATin [Lipitor] 40 mg PO BEDTIME 10/01/17 [History] Ondansetron [Zofran ODT] 4 mg PO Q8H PRN 08/14/18 [History] Umeclidinium Brm/Vilanterol Tr [Anoro Ellipta 62.5-25 MCG] 1 each IH DAILY 08/14/18 [History] amLODIPine Besylate [Norvasc] 10 mg PO DAILY 08/14/18 [History] busPIRone [Buspar] 1 mg PO TID 08/14/18 [History] Potassium Chloride 20 meq PO DAILY #30 tablet.er 08/15/18 [Rx] hydrOXYzine pamoate [Vistaril] 1 cap PO TID PRN 02/03/21 [History] Forms: ED Department Discharge Referrals: Leona Walden DO [Primary Care Provider] - - Discharge Summary/Plan Comment DC Time >30 min.: No - General Info Date of Service: 02/04/21 Admission Dx/Problem (Free Text: hypokalemia , anxiety Functional Status: Reports: Pain Controlled, Tolerating Diet - Review of Systems General: Reports: No Symptoms HEENT: Reports: No Symptoms Pulmonary: Reports: No Symptoms Cardiovascular: Reports: No Symptoms Gastrointestinal: Reports: No Symptoms Genitourinary: Reports: No Symptoms Musculoskeletal: Reports: No Symptoms Skin: Reports: No Symptoms Neurological: Reports: No Symptoms Psychiatric: Reports: No Symptoms - Patient Data Vitals - Most Recent: Last Vital Signs Temp 37.6 C 02/04/21 06:28 Pulse 84 02/04/21 05:59 Resp 18 02/04/21 05:59 BP 120/54 L 02/04/21 05:59 Pulse Ox 94 L 02/04/21 05:59 Weight - Most Recent: 75.523 kg I&O - Last 24 hours: Intake & Output 02/03/21 02/04/21 02/04/21 22:59 06:59 14:59 Intake Total 2170 Output Total 400 Balance 1770 Lab Results - Last 24 hrs: Laboratory Results - last 24 hr 02/03/21 02/03/21 02/03/21 Range/Units 18:05 18:05 18:28 WBC 11.2 H (4.0-10.0) x10^3/uL RBC 4.88 (4.00-5.50) x10^6/uL Hgb 14.5 (12.0-16.0) g/dL Hct 42.2 (33.0-47.0) % MCV 86.5 (78.0-93.0) fL MCH 29.7 (26.0-32.0) pg MCHC 34.4 (32.0-36.0) g/dL RDW Coeff of Will 14.5 (10.0-15.0) % Plt Count 265 (130-400) x10^3/uL Neut % (Auto) 77.4 (50.0-80.0) % Lymph % (Auto) 13.5 L (25.0-50.0) % [place] % (Auto) 8.6 (2.0-11.0) % Eos % (Auto) 0.3 (0.0-4.0) % Baso % (Auto) 0.2 (0.2-1.2) % Sodium 143 (136-145) mmol/L Potassium 2.9 L* (3.5-5.1) mmol/L Chloride 102 (98-107) mmol/L Carbon Dioxide 32 (21-32) mmol/L Anion Gap 11.9 (5-15) mmol/L BUN 7 (7-18) mg/dL Creatinine 0.8 (0.55-1.02) mg/dL Est Cr Clr Drug Dosing TNP Estimated GFR (MDRD) > 60 Glucose 139 H (70-99) mg/dL Calcium 9.1 (8.5-10.1) mg/dL Corrected Calcium 9.3 (8.5-10.1) mg/dL Magnesium 2.1 (1.8-2.4) mg/dL Total Bilirubin 0.3 (0.2-1.0) mg/dL AST 15 (15-37) U/L ALT 15 (14-59) U/L Alkaline Phosphatase 100 (46-116) U/L Troponin I High Sens 8 (<=51) ng/L NT-Pro-B Natriuret Pep 172 H (<=125) pg/mL Total Protein 7.8 (6.4-8.2) g/dL Albumin 3.8 (3.4-5.0) g/dL Globulin 4.0 Albumin/Globulin Ratio 0.95 TSH, Ultra Sensitive 0.921 (0.358-3.74) uIU/mL Urine Color (YELLOW) Urine Appearance (CLEAR) Urine pH (5.0-8.0) Ur Specific Cat[place] Urine Protein (NEGATIVE) mg/dL Urine Glucose (UA) (NEGATIVE) mg/dL Urine Ketones (NEGATIVE) mg/dL Urine Occult Blood (NEGATIVE) Urine Nitrite (NEGATIVE) Urine Bilirubin (NEGATIVE) Urine Urobilinogen (0.2) EU/dL Ur Leukocyte Esterase (NEGATIVE) Urine RBC (NOT SEEN) /HPF Urine WBC (NOT SEEN) /HPF Ur Squamous Epith Cells (NOT SEEN) /HPF Urine Bacteria (NOT SEEN) /HPF Urine Mucus (NOT SEEN) /LPF SARS CoV-2 RNA Rapid SUSANA Negative (NEGATIVE) 02/03/21 02/04/21 Range/Units 21:00 06:18 WBC (4.0-10.0) x10^3/uL RBC (4.00-5.50) x10^6/uL Hgb (12.0-16.0) g/dL Hct (33.0-47.0) % MCV (78.0-93.0) fL MCH (26.0-32.0) pg MCHC (32.0-36.0) g/dL RDW Coeff of Will (10.0-15.0) % Plt Count (130-400) x10^3/uL Neut % (Auto) (50.0-80.0) % Lymph % (Auto) (25.0-50.0) % [place] % (Auto) (2.0-11.0) % Eos % (Auto) (0.0-4.0) % Baso % (Auto) (0.2-1.2) % Sodium 144 (136-145) mmol/L Potassium 4.8 D (3.5-5.1) mmol/L Chloride 110 H (98-107) mmol/L Carbon Dioxide 28 (21-32) mmol/L Anion Gap 10.8 (5-15) mmol/L BUN 7 (7-18) mg/dL Creatinine 0.8 (0.55-1.02) mg/dL Est Cr Clr Drug Dosing 56.50 Estimated GFR (MDRD) > 60 Glucose 165 H (70-99) mg/dL Calcium 8.3 L (8.5-10.1) mg/dL Corrected Calcium (8.5-10.1) mg/dL Magnesium (1.8-2.4) mg/dL Total Bilirubin (0.2-1.0) mg/dL AST (15-37) U/L ALT (14-59) U/L Alkaline Phosphatase (46-116) U/L Troponin I High Sens (<=51) ng/L NT-Pro-B Natriuret Pep (<=125) pg/mL Total Protein (6.4-8.2) g/dL Albumin (3.4-5.0) g/dL Globulin Albumin/Globulin Ratio TSH, Ultra Sensitive (0.358-3.74) uIU/mL Urine Color Yellow (YELLOW) Urine Appearance Slightly cloudy H (CLEAR) Urine pH 7.0 (5.0-8.0) Ur Specific Catlin 1.015 Urine Protein Negative (NEGATIVE) mg/dL Urine Glucose (UA) Negative (NEGATIVE) mg/dL Urine Ketones Negative (NEGATIVE) mg/dL Urine Occult Blood Small H (NEGATIVE) Urine Nitrite Negative (NEGATIVE) Urine Bilirubin Negative (NEGATIVE) Urine Urobilinogen 0.2 (0.2) EU/dL Ur Leukocyte Esterase Negative (NEGATIVE) Urine RBC 0-5 (NOT SEEN) /HPF Urine WBC 0-5 (NOT SEEN) /HPF Ur Squamous Epith Cells Rare (NOT SEEN) /HPF Urine Bacteria Rare (NOT SEEN) /HPF Urine Mucus Rare H (NOT SEEN) /LPF SARS CoV-2 RNA Rapid SUSANA (NEGATIVE) Med Orders - Current: Current Medications Acetaminophen (Acetaminophen 325 Mg Tab) 650 mg PO Q4H PRN PRN Reason: Pain (Mild 1-3)/fever Last Admin: 02/04/21 05:58 Dose: 650 mg Documented by: Hydrocodone Bitart/Acetaminophen (Acetaminophen/Hydrocodone 325-5 Mg Tab) 1 tab PO Q4H PRN PRN Reason: Pain (moderate 4-6) Albuterol (Albuterol 0.083% 2.5 Mg/3 Ml Neb Soln) 2.5 mg NEB Q2H PRN PRN Reason: Dyspnea Albuterol (Take Home: Albuterol 18 Gm Inhaler, 1 Inhaler Pack) 2 packet INH Q6H PRN PRN Reason: Dyspnea Amlodipine Besylate (Amlodipine 10 Mg Tab) 10 mg PO DAILY SATURNINO Aspirin (Aspirin 81 Mg Tab.Chew) 81 mg PO DAILY [facility] Atorvastatin Calcium (Atorvastatin 40 Mg Tab) 40 mg PO BEDTIME [facility] Buspirone HCl (Buspirone 5 Mg Tab) 5 mg PO BID SATURNINO Docusate Sodium (Docusate Sodium 100 Mg Cap) 100 mg PO BID PRN PRN Reason: Constipation Flumazenil (Flumazenil 0.1 Mg/Ml 5 Ml Mdv) 0.2 mg IVPUSH ASDIRECTED PRN PRN Reason: Respiratory Depression Furosemide (Furosemide 20 Mg Tab) 20 mg PO DAILY [facility] Potassium Chloride/Sodium Chloride (Normal Saline With 40 Meq Kcl) 1,000 mls @ 200 mls/hr IV ASDIRECTED SATURNINO Last Admin: 02/04/21 06:33 Dose: 200 mls/hr Documented by: Lisinopril (Lisinopril 20 Mg Tab) 10 mg PO DAILY [facility] Lorazepam (Lorazepam 2 Mg/Ml Sdv) 1 mg IVPUSH Q6H PRN PRN Reason: Anxiety Last Admin: 02/03/21 22:38 Dose: 1 mg Documented by: Lorazepam (Lorazepam 1 Mg Tab) 1 mg PO BID PRN PRN Reason: Anxiety Montelukast Sodium (Montelukast 10 Mg Tab) 10 mg PO BEDTIME [facility] Nicotine (Nicotine 21 Mg/24 Hr Patch) 21 mg TRDERM DAILY [facility] Last Admin: 02/03/21 21:41 Dose: Not Given Documented by: Ondansetron HCl (Ondansetron 4 Mg Tab.Dis) 4 mg PO Q4H PRN PRN Reason: nausea, able to take PO Pantoprazole Sodium (Pantoprazole 40 Mg Tab.Cr) 40 mg PO DAILY [facility] Sodium Chloride (Sodium Chloride 0.9% 10 Ml Syringe) 10 ml FLUSH ASDIRECTED PRN PRN Reason: Keep Vein Open Discontinued Medications Sodium Chloride (Normal Saline) 1,000 mls @ 999 mls/hr IV ONETIME ONE Stop: 02/03/21 18:48 Last Admin: 02/03/21 18:32 Dose: 999 mls/hr Documented by: Lorazepam (Lorazepam 1 Mg Tab) 1 mg PO ONETIME ONE Stop: 02/03/21 17:49 Last Admin: 02/03/21 18:15 Dose: 1 mg Documented by: Methylprednisolone Sodium Succinate (Methylprednisolone Sodium Succinate 125 Mg/2 Ml Sdv) 125 mg IVPUSH ONETIME ONE Stop: 02/03/21 20:22 Last Admin: 02/03/21 20:48 Dose: 125 mg Documented by: Potassium Chloride (Potassium Chloride 10% 20 Meq/15 Ml Soln 15 Ml Ud Cup) 40 meq PO ONETIME ONE Stop: 02/03/21 18:57 Last Admin: 02/03/21 22:36 Dose: Not Given Documented by: Potassium Chloride (Potassium Chloride 10% 20 Meq/15 Ml Soln 15 Ml Ud Cup) 40 meq PO ONETIME ONE Stop: 02/04/21 06:01 Last Admin: 02/04/21 05:51 Dose: 40 meq Documented by: Potassium Chloride (Potassium Chloride 10% 20 Meq/15 Ml Soln 15 Ml Ud Cup) 40 meq PO ONETIME ONE Stop: 02/03/21 22:25 Last Admin: 02/03/21 22:34 Dose: 40 meq Documented by: - Exam General: Reports: Alert HEENT: Reports: Pupils Equal Neck: Reports: Supple Lungs: Reports: Clear to Auscultation, Normal Respiratory Effort Cardiovascular: Reports: Regular Rate GI/Abdominal Exam: Normal Bowel Sounds Extremities: Normal Inspection, Normal Range of Motion Skin: Reports: Warm Neurological: Reports: No New Focal Deficit Psy/Mental Status: Reports: Alert *Q Meaningful Use (DIS) - VTE *Q VTE Mechanical Contraindications *Q: At Risk for Falls
[2021-02-04] MEDS: Nicotine 21 MG/24 Hr Patch TRDERM SCH (07:48)
[2021-02-04] MEDS ORDERED: Furosemide 20 MG Tab PO SCH (08:00)
[2021-02-04] MEDS ORDERED: amLODIPine 10 MG Tab PO SCH (08:00)
[2021-02-04] MEDS ORDERED: busPIRone 5 MG Tab PO SCH (08:00)
[2021-02-04] MEDS ORDERED: Aspirin 81 MG Tab.Chew PO SCH (08:00)
[2021-02-04] MEDS ORDERED: Lisinopril 20 MG Tab PO SCH (08:00)
[2021-02-04] MEDS ORDERED: Pantoprazole 40 MG Tab.CR PO SCH (08:00)
[2021-02-04] MEDS ORDERED: atorvaSTATin 40 MG Tab PO SCH (20:00)
[2021-02-04] MEDS ORDERED: Montelukast 10 MG Tab PO SCH (20:00)
[2021-02-05] MEDS ORDERED: Lisinopril 10 MG Tab PO SCH (08:00)
== END 2021-02-04 09:30 | disposition home or self-care (01) ==
LOC: VM.ED 17:39 → VM.MS 20:10
PROVIDERS: ADMIT Physician Assistant; ATTEND Physician Assistant
DX: J44.9 Chronic obstructive pulmonary disease, unspecified (principal); E87.6 Hypokalemia; F17.210 Nicotine dependence, cigarettes, uncomplicated; E78.00 Pure hypercholesterolemia, unspecified; I10 Essential (primary) hypertension; K21.9 Gastro-esophageal reflux disease without esophagitis; E11.9 Type 2 diabetes mellitus without complications; Z20.822 Contact with and (suspected) exposure to COVID-19; Z90.49 Acquired absence of other specified parts of digestive tract; Z88.8 Allergy status to other drugs, medicaments and biological substances; Z79.899 Other long term (current) drug therapy; Z79.82 Long term (current) use of aspirin
CPT/HCPCS: 36415; 71046; 80048; 80053; 81001; 83735; 83880; 84443; 84484; 85025; 93005; 93010; 96365; 96366; 96375; 96376; 99217; 99220; 99285-25; A9270-GY; G0378; J2060; J2930; J3480; J7030; U0002

== ENCOUNTER 2021-06-01 12:02 | Inpatient (IN) | payer MEDICARE, MEDICAID ==
[2021-06-01] MEDS ORDERED: Ondansetron 4 MG/2 ML SDV IV PRN (12:33)
[2021-06-01 13:16] LABS: PCO2 ARTERIAL,POC 39 mmHg (35-48)
[2021-06-01 13:21] LABS: CORONAVIRUS COVID-19 NAA NEGATIVE (NEGATIVE)
[2021-06-01] MEDS: Azithromycin 500 MG in Sodium Chloride 0.9% 250 ML IV SCH (13:34)
[2021-06-01] MEDS: busPIRone 5 MG Tab PO SCH ×2 (13:35→20:14)
[2021-06-01] MEDS: hydrOXYzine HCl 25 MG Tab PO PRN (13:35)
[2021-06-01] MEDS: Sodium Chloride 0.9% 1,000 ML IV SCH (13:36)
[2021-06-01 13:42] LABS: CHLORIDE,CL 99 mmol/L (98-107); SODIUM,NA 136 mmol/L (136-145)
[2021-06-01 13:44] LABS: ANION GAP 14.2 mmol/L (5-15)
[2021-06-01] MEDS: Sodium Chloride 0.9% 10 ML Syringe FLUSH PRN ×2 (14:36→15:30)
[2021-06-01] MEDS: Albuterol/Ipratropium 3.0-0.5 MG/3 ML Neb Soln NEB SCH ×3 (14:37→22:43)
[2021-06-01] MEDS ORDERED: LORazepam 1 MG Tab PO STA (15:21)
[2021-06-01] MEDS: methylPREDNISolone Sodium Succinate 40 MG/1 ML SDV IVPUSH SCH (15:29)
[2021-06-01] MEDS ORDERED: Iopamidol 612 MG/ML 100 ML Bottle IVPUSH ONE (16:00)
--- NOTE | 2021-06-01 16:53 | CT ---
[id number] CT/CT Chest Abdomen Pelvis W IV Exam: CT Chest Abdomen Pelvis W IV Clinical Data: ABDOMINAL PAIN NAUSEA AND VOMITING COMPARISON: NO PREVIOUS SIMILAR EXAM IS AVAILABLE FINDINGS: The ascending thoracic aorta is dilated measuring 5 cm in diameter. There is no focal aneurysm or dissection. There is no infiltrate. There is no mediastinal mass or adenopathy. The descending thoracic aorta is prominent measuring 3.5 cm in diameter There is a 2 cm right adrenal adenoma. The liver and spleen, left adrenal, kidneys, and pancreas otherwise are unremarkable. The pelvis shows no mass or adenopathy The gallbladder has been removed. The appendix is normal. The uterus is involuted IMPRESSION: NO ACUTE PROCESS EVIDENT. DILATATION OF THORACIC AORTA CONSIDER FOLLOW-UP Sánchez Mc MD 06/01/21 [id number] Thank you for allowing us to participate in the care of your patient.
[2021-06-01] MEDS: Potassium Chloride 20 MEQ Tab.ER PO SCH (18:14)
--- NOTE | 2021-06-01 19:41 | HP ---
Admission history and physical to the acute care floor at [facility]. CHIEF COMPLAINT: 1. Abdominal pain. 2. Dehydration. 3. Weakness. 4. Shortness of breath. 5. Productive cough. HISTORY OF PRESENT ILLNESS: A 70-year-old female patient, presented to the [facility] this afternoon with the above chief complaint. The patient had been having these symptoms for the past month. She had been seen in the clinic on a couple of different occasions and was treated accordingly; however, her symptoms continue to persist. The patient states she has been vomiting more over the past couple of days. She feels very nauseated. Abdominal pain is general. The pain is colicky and cramping. No diarrhea. The patient has not had any headaches, dizziness, or lightheadedness. The patient has a productive cough producing a green/yellow appearing purulent sputum. The patient feels more short of breath. The patient has a history of cigarette smoking. The patient has known COPD. The patient denies any chest pain or palpitations. No leg swelling. The patient has had chills, but no fevers. PAST MEDICAL HISTORY: 1. Generalized anxiety disorder. 2. Major depressive disorder. 3. Hypertension associated with diabetes. 4. GERD. 5. Hyperlipidemia associated with type 2 diabetes. 6. Type 2 diabetes without complication. PAST SURGICAL HISTORY: 1. section. 2. Cholecystectomy. FAMILY HISTORY: Noncontributory. SOCIAL HISTORY: The patient does not consume any alcohol. The patient is not sexually active. The patient does not use any illegal drugs. The patient is a current cigarette smoker. The patient is single and lives alone. CODE STATUS: Code 2. DIET: ADA. ACTIVITY: As tolerated with assistance. LABORATORY STUDIES: 1. CBC: White blood cell count 9.3, hemoglobin 15.4, hematocrit 45.5, platelets 306,000. 2. CMP: Sodium 136, potassium 4.2, chloride 99, CO2 27, anion gap 14.2, BUN 11, creatinine 0.8, GFR greater than 60, glucose 109, calcium 9.1, total bilirubin 0.7, AST 35, ALT 218, alkaline phosphatase 292, total protein 7.6. 3. Ammonia less than 17. 4. C-reactive protein 1.4. 5. Lactic acid 1.2. 6. Procalcitonin 0.25. 7. Urinalysis is unremarkable. IMAGING STUDIES: CT of chest, abdomen, and pelvis with contrast shows no acute process. There is a dilation of the thoracic aorta. REVIEW OF SYSTEMS: See HPI. PHYSICAL EXAMINATION: Vital Signs: Height 5 feet 3 inches, weight 162 pounds, temperature 97, pulse 95, blood pressure 138/82, oxygen saturation 98% on room air. Skin: Fragile, intact, warm and dry. Respiratory: Inspiratory and expiratory wheezing in the upper lobes. Scattered rhonchi throughout. Lung sounds are decreased. Cardiovascular: Regular rate and rhythm, no murmur. Abdomen: Diffusely tender throughout. Bowel sounds are hyperactive x4. Soft. Extremities: No edema. Neurological: The patient is alert. The patient is oriented to person, place, and time. No focal neurological deficits. ASSESSMENT: 1. Acute chronic obstructive pulmonary disease exacerbation. 2. Clinical dehydration. 3. Anxiety disorder, exacerbated. 4. Elevated alkaline phosphatase level. 5. Abdominal pain. 6. Nausea and vomiting. 7. Diabetes type 2, uncomplicated. 8. Hypertension associated with diabetes. 9. Hyperlipidemia due to diabetes type 2. 10.Major depressive disorder. 11.Generalized anxiety disorder. 12.Gastroesophageal reflux disease. PLAN: A 70-year-old female patient is admitted to the acute care floor for the above diagnoses. We will check a CT scan of the chest, abdomen, and pelvis. Recheck laboratory work tomorrow. Oxygen to keep sats greater than 88% and less than 92%. The patient will be started on IV Solu-Medrol. We will start the patient on azithromycin IV 500 mg daily for COPD exacerbation. Continue with IV fluids for hydration. The patient is a code 2. The patient does not wish to transfer to a higher level of care should the need arise. Recheck laboratory work tomorrow morning. Anticipate the patient to be admitted at least 2 to 3 days as long as her respiratory status stays stable. This patient was seen and examined by me as an [facility] provider. TB: 06/01/2021 18:50:27 MODL: 06/01/2021 19:32:49 /[id number]
[2021-06-01] MEDS: LORazepam 1 MG Tab PO SCH (20:13)
[2021-06-01] MEDS: QUEtiapine 25 MG Tab PO SCH (20:14)
[2021-06-01] MEDS: atorvaSTATin 40 MG Tab PO SCH (20:14)
[2021-06-02] MEDS: Sodium Chloride 0.9% 1,000 ML IV SCH ×3 (01:09→22:33)
[2021-06-02] MEDS: Albuterol/Ipratropium 3.0-0.5 MG/3 ML Neb Soln NEB SCH ×5 (03:21→18:18)
[2021-06-02 07:38] LABS: ANION GAP 16.3 mmol/L (5-15); CHLORIDE,CL 107 mmol/L (98-107); SODIUM,NA 142 mmol/L (136-145)
[2021-06-02] MEDS: busPIRone 5 MG Tab PO SCH ×3 (08:08→20:00)
[2021-06-02] MEDS: Pantoprazole 40 MG Tab.CR PO SCH (08:08)
[2021-06-02] MEDS: amLODIPine 10 MG Tab PO SCH (08:08)
[2021-06-02] MEDS: Potassium Chloride 20 MEQ Tab.ER PO SCH ×2 (08:09→18:17)
[2021-06-02] MEDS: LORazepam 1 MG Tab PO SCH ×2 (08:09→20:00)
[2021-06-02] MEDS: Aspirin 81 MG Tab.Chew PO SCH (08:09)
[2021-06-02] MEDS: Furosemide 20 MG Tab PO SCH (08:09)
[2021-06-02] MEDS: Lisinopril 10 MG Tab PO SCH (08:09)
[2021-06-02] MEDS: methylPREDNISolone Sodium Succinate 40 MG/1 ML SDV IVPUSH SCH (08:13)
[2021-06-02] MEDS: hydrOXYzine HCl 25 MG Tab PO PRN (11:23)
[2021-06-02] MEDS: Azithromycin 500 MG in Sodium Chloride 0.9% 250 ML IV SCH (13:31)
[2021-06-02] MEDS: QUEtiapine 25 MG Tab PO SCH (20:00)
[2021-06-02] MEDS: atorvaSTATin 40 MG Tab PO SCH (20:01)
[2021-06-03] MEDS: Albuterol/Ipratropium 3.0-0.5 MG/3 ML Neb Soln NEB SCH ×3 (01:04→07:06)
--- NOTE | 2021-06-03 02:02 | PN ---
Progress Note for SALINA CARRIZALES Date: 06/02/2021 Room #: [id number] CHIEF COMPLAINT: 1. Abdominal pain. 2. Shortness of breath. 3. Dehydration. 4. Productive cough. 5. Weakness. SUBJECTIVE: Hospital day #2 on a 70-year-old female patient who presented to the [facility] yesterday afternoon for the above chief complaint. The patient's symptoms have progressively gotten worse. Patient was admitted acutely for chronic obstructive pulmonary disease exacerbation, productive cough, abdominal pain, dehydration. The patient's CT scan from yesterday did not show any acute etiology for the patient's abdominal pain. She states today the pain is better. It appears the patient's symptoms are more related to her uncontrolled anxiety. The patient has not had any headaches, dizziness, or lightheadedness. Her nausea has improved. No diarrhea. She has colicky abdominal pain. No chest pain or palpitations. Shortness of breath continues especially with activity. She continues to have a productive cough. No fevers or chills. OBJECTIVE: Vital Signs: Weight 161, temperature 98.2, pulse 96, blood pressure 136/80, respiratory rate 18, oxygen 94% on room air. Skin: Intact, warm and dry. Respiratory: End-expiratory wheezing with scattered rhonchi throughout, otherwise very decreased. Cardiovascular: Regular rate and rhythm. No murmur. Abdomen: Some epigastric tenderness on deep palpation. Bowel sounds are hypoactive x4, soft. Extremities: No edema. Neurologic: The patient is alert. Patient is oriented to person, place, and time. LABORATORY STUDIES: 1. CBC: White blood cell count 8.3, hemoglobin 12.5, hematocrit 37.3, platelets 263,000. 2. PT 11.0, INR 1.0. 3. CMP: Sodium 142, potassium 4.3, chloride 107, CO2 of 23, anion gap 16.3, BUN 11, creatinine 0.6, GFR greater than 60, glucose 119. ALT 145, alkaline phosphatase 206, protein 6.3. 4. Amylase 13. 5. Lipase 29. ASSESSMENT: 1. Acute chronic obstructive pulmonary disease exacerbation. 2. Clinical dehydration. 3. Anxiety disorder, exacerbated. 4. Elevated alkaline phosphatase. 5. Abdominal pain. 6. Nausea and vomiting. 7. Type 2 diabetes, uncomplicated. 8. Hypertension associated with diabetes. 9. Hyperlipidemia due to diabetes type 2. 10.Major depressive disorder. 11.Gastroesophageal reflux disease. PLAN: Hospital day #2 on a 70-year-old female patient who was admitted to the acute care floor for the above diagnoses. We will continue to work on anxiety control. Await laboratory results due to elevated alkaline phosphatase. Oxygen to keep sats greater than 88% and less than 92%. Continue on IV Solu-Medrol. Continue on IV azithromycin. If patient continues to do well and remains off oxygen, plan for discharge home tomorrow. Recheck laboratory work tomorrow morning. This patient was seen and examined by me as an [facility] provider. TB: 06/02/2021 09:12:19 MODL: 06/03/2021 01:56:36 /[id number]
[2021-06-03 06:54] VITALS: BP 144/72; PULSE 88
[2021-06-03 07:29] LABS: CHLORIDE,CL 109 mmol/L (98-107); SODIUM,NA 144 mmol/L (136-145)
[2021-06-03 07:32] LABS: ANION GAP 11.6 mmol/L (5-15)
[2021-06-03] MEDS: Lisinopril 10 MG Tab PO SCH (07:58)
[2021-06-03] MEDS: Potassium Chloride 20 MEQ Tab.ER PO SCH (07:58)
[2021-06-03] MEDS: Furosemide 20 MG Tab PO SCH (07:58)
[2021-06-03] MEDS: busPIRone 5 MG Tab PO SCH (07:58)
[2021-06-03] MEDS: Aspirin 81 MG Tab.Chew PO SCH (07:58)
[2021-06-03] MEDS: LORazepam 1 MG Tab PO SCH (07:58)
[2021-06-03] MEDS: amLODIPine 10 MG Tab PO SCH (07:59)
[2021-06-03] MEDS: Pantoprazole 40 MG Tab.CR PO SCH (07:59)
[2021-06-03] MEDS: methylPREDNISolone Sodium Succinate 40 MG/1 ML SDV IVPUSH SCH (07:59)
[2021-06-03] MEDS: Sodium Chloride 0.9% 10 ML Syringe FLUSH PRN (07:59)
--- NOTE | 2021-06-03 20:51 | DISCH ---
ADMITTING DIAGNOSES: 1. Acute chronic obstructive pulmonary disease exacerbation. 2. Clinical dehydration. 3. Anxiety disorder. 4. Elevated alkaline phosphatase. 5. Abdominal pain. 6. Nausea and vomiting. 7. Diabetes type 2, uncomplicated. 8. Hypertension associated with diabetes. 9. Hyperlipidemia due to diabetes type 2. 10.Major depressive disorder. 11.Generalized anxiety disorder. 12.Gastroesophageal reflux disease. DISCHARGE DIAGNOSES: 1. Acute chronic obstructive pulmonary disease exacerbation - resolved. 2. Clinical dehydration - resolved. 3. Elevated alkaline phosphatase, improving. HISTORY OF PRESENT ILLNESS: The patient was seen by me in the clinic on 06/01/2021 and admitted to the acute care floor at [facility] for the above diagnoses. The patient was having over a month of decreased p.o. intake, weakness, shortness of breath, nausea and vomiting. The patient had been seen in the clinic on a couple of different occasions and did not respond well to treatment. Therefore, decision was made to admit to the hospital for further workup and cares. BRIEF HOSPITAL COURSE: The patient remained hemodynamically stable and afebrile. The patient was started on Zithromax and Solu-Medrol per GOLD guidelines. The patient did not have any problems with urination or bowel movements. Appetite was good. The patient maintained her oxygen saturations without oxygen. The patient does have laboratory work pending secondary to the elevated alkaline phosphatase. CONSULTATIONS: Case Management. ACTIVITY: As tolerated. DIET: Heart healthy, diabetic. DISCHARGE LABORATORY WORK: 1. CBC: White blood cell count 12.0, hemoglobin 11.3, hematocrit 34.8, platelets 254,000. 2. CMP: Sodium 144, potassium 3.6, chloride 109, CO2 27, anion gap 11.6, BUN 10, creatinine 0.7, GFR greater than 60, glucose 109, calcium 8.5, AST 14, ALT 110, alkaline phosphatase 168, total protein 5.9. DISCHARGE MEDICATIONS: 1. Lisinopril 10 mg 1 tablet p.o. daily. 2. Protonix 40 mg 1 tablet p.o. daily. 3. Lorazepam 2 mg 1 tablet p.o. twice daily. 4. Lasix 20 mg 1 tablet p.o. daily. 5. Aspirin 81 mg 1 tablet p.o. daily. 6. Atorvastatin 40 mg 1 tablet p.o. daily at bedtime. 7. Albuterol HFA 2 puffs every 6 hours as needed. 8. Amlodipine 10 mg 1 tablet p.o. daily. 9. Anoro Ellipta 1 inhalation orally daily. 10.BuSpar 10 mg 1 tablet p.o. 3 times daily. 11.Hydroxyzine 25 mg orally 3 times daily as needed. 12.Potassium chloride 20 mEq p.o. twice daily. 13.Zofran 4 mg p.o. every 8 hours as needed. 14.Seroquel 50 mg 1 tablet p.o. daily at bedtime. 15.Levaquin 500 mg 1 tablet p.o. daily x7 days, then stop. REVIEW OF SYSTEMS: See HPI. DISCHARGE PHYSICAL EXAMINATION: Vital Signs: Temperature 98.0, pulse 88, blood pressure 144/72, respiratory rate 16, oxygen saturation 91% on room air. Skin: Intact, warm, and dry. Respiratory: Lungs are severely decreased throughout, otherwise clear. Cardiovascular: Regular rate and rhythm, no murmur. Abdomen: Soft, nontender. Bowel sounds normoactive x4. Extremities: No edema. Neurological: The patient is alert. The patient is oriented to person, place, and time. No focal neurological deficits. ASSESSMENT: 1. Acute chronic obstructive pulmonary disease exacerbation. 2. Clinical dehydration. 3. Anxiety disorder. 4. Elevated alkaline phosphatase. 5. Abdominal pain. 6. Nausea and vomiting. 7. Diabetes type 2, uncomplicated. 8. Hypertension associated with diabetes. 9. Hyperlipidemia due to diabetes type 2. 10.Major depressive disorder. 11.Generalized anxiety disorder. 12.Gastroesophageal reflux disease. PLAN: The patient will be discharged home today. The patient will be started on Seroquel and Levaquin. Side effects and safety profile of all medications were thoroughly discussed. The patient is hemodynamically stable at the time of discharge. Continue all other medications the same. The patient will follow up with her PCP on Monday for discharge followup. The patient is a code 2. Laboratory results were reviewed with the patient today. The patient will follow up as directed. TB: 06/03/2021 14:22:22 MODL: 06/03/2021 20:42:11 /[id number]
== END 2021-06-03 09:36 | disposition home or self-care (01) | DRG 192 ==
LOC: VM.MS 12:22
PROVIDERS: ADMIT Nurse Practitioner Family; ATTEND Nurse Practitioner Family
DX: J44.1 Chronic obstructive pulmonary disease with (acute) exacerbation (principal); E86.0 Dehydration; R74.01 Elevation of levels of liver transaminase levels; E11.9 Type 2 diabetes mellitus without complications; I10 Essential (primary) hypertension; E78.5 Hyperlipidemia, unspecified; F32.9 Major depressive disorder, single episode, unspecified; F41.1 Generalized anxiety disorder; F17.210 Nicotine dependence, cigarettes, uncomplicated; K21.9 Gastro-esophageal reflux disease without esophagitis; Z20.822 Contact with and (suspected) exposure to COVID-19; Z79.82 Long term (current) use of aspirin; Z79.01 Long term (current) use of anticoagulants; Z79.899 Other long term (current) drug therapy; Z90.49 Acquired absence of other specified parts of digestive tract
CPT/HCPCS: 0240U; 36415; 36600; 71260; 74177; 80053; 80074; 81001; 82024; 82103; 82140; 82150; 82390; 82803; 82977; 83516; 83605; 83690; 83735; 83970; 84100; 84145; 84155; 84165; 85025; 85610; 86038; 86140; 87040; 94640; 94760; 97162-GP; A9270-GY; J0456; J2405; J2920; J7030; J7050; J7620-GY; Q9967

== ENCOUNTER 2022-02-10 17:51 | Emergency (ER) | payer MEDICARE, MEDICAID ==
[2022-02-10 17:59] VITALS: BP 137/75; PULSE 97
== END 2022-02-10 18:49 | disposition home or self-care (01) ==
LOC: VM.ED 17:51
DX: F13.239 Sedative, hypnotic or anxiolytic dependence with withdrawal, unspecified (principal); J44.9 Chronic obstructive pulmonary disease, unspecified; E78.00 Pure hypercholesterolemia, unspecified; I10 Essential (primary) hypertension; E11.9 Type 2 diabetes mellitus without complications; Z88.8 Allergy status to other drugs, medicaments and biological substances; Z79.899 Other long term (current) drug therapy; Z79.82 Long term (current) use of aspirin; Z90.49 Acquired absence of other specified parts of digestive tract
CPT/HCPCS: 99283; 99284